=== PATIENT | female | born 1955 | race Caucasian/White ===

== ENCOUNTER 2018-05-16 12:05 | Inpatient (IN) ==
[2018-05-16] MEDS ORDERED: HYDROmorphone PF Inj 2 MG/ML Vial IV.PUSH ONE ×2 (12:34→13:50)
[2018-05-16] MEDS ORDERED: Sod Chloride 0.9% Inj 1,000 ML IV.SIG ONE (12:34)
--- NOTE | 2018-05-16 12:43 | ED ---
HPI General Chief complaint: Abdominal Pain Stated complaint: ABD PAIN Time Seen by Provider: 05/16/18 12:25 Source: patient and family Mode of arrival: ambulatory Limitations: no limitations History of Present Illness HPI narrative: 63-year-old female with history of rheumatoid arthritis, here for evaluation of severe abdominal pain. The patient was seen in the emergency department yesterday for the same. She had a CT abdomen pelvis that showed no acute intra-abdominal abnormality. Her pain was relieved only for a short time with morphine in the emergency department. The patient was given the option to be admitted for intractable abdominal pain. She elected to be discharged home with pain medication. She states that her pain never resolved, and has been progressively worsening throughout the day today. The worst pain is in her epigastrium, but she also has severe diffuse abdominal pain today. She notices that the pain today radiates to her left shoulder. She describes the pain as sharp/pressure-like, severe, constant, worse with even the slightest movements. She feels nauseous but has not vomited. She has been unable to eat or drink because of the pain. History of section and appendectomy. No other abdominal surgeries. No known cardiac disease. Related Data Home Medications Medication Instructions Recorded Confirmed amitriptyline 50 mg PO DAILY 05/15/18 05/16/18 folic acid 1 mg PO DAILY 05/15/18 05/16/18 hydroxychloroquine [Plaquenil] 200 mg PO DAILY 05/15/18 05/16/18 meloxicam 15 mg PO DAILY 05/15/18 05/16/18 prednisone 5 mg PO DAILY 05/15/18 05/16/18 methotrexate (PF) 10 mg SUBCUT QWEEK 05/16/18 05/16/18 tocilizumab [Actemra] 162 mg SUBCUT Q2W 05/16/18 05/16/18 Previous Rx's Medication Instructions Recorded hydrocodone-acetaminophen [[employer]] 1 tab PO Q6H PRN #12 tab 05/15/18 Allergies Allergy/AdvReac Type Severity Reaction Status Date / Time No Known Allergies Allergy Verified 05/16/18 12:28 Review of Systems ROS: all other systems reviewed are negative PMFSH Social History Social History Substance History: No History of Abuse Second Hand Smoke Exposure: No Smoking Status: Never smoker How Often Do You Have a Drink Containing Alcohol: 2 to 4 times a month Immunization History Tetanus Immunization: <5 Years Exam Narrative Exam Narrative: GENERAL: Well-developed, well-nourished, keeps eyes closed, lying still, moderate distress secondary to pain. SKIN: Focused skin assessment warm/dry. No rash. HEAD: Atraumatic. Normocephalic. EYES: Pupils equal and round. No scleral icterus. No injection or drainage. ENT: Mucous membranes pink and dry. NECK: Trachea midline. No JVD. CARDIOVASCULAR: Tachycardic, rate 115, regular. RESPIRATORY: No accessory muscle use. Clear to auscultation. Breath sounds equal bilaterally. GASTROINTESTINAL: Abdomen rigid, distended, diffusely tender with peritoneal signs, absent bowel sounds. MUSCULOSKELETAL: No obvious deformities. No clubbing. No cyanosis. No edema. NEUROLOGICAL: Awake and alert. No obvious cranial nerve deficits. Motor grossly within normal limits. Normal speech. PSYCHIATRIC: Appropriate mood and affect; insight and judgment normal. Course Initial Documented Vital Signs Temperature 98.8 F 05/16/18 12:10 Pulse Rate 120 H 05/16/18 12:10 Respiratory Rate 18 05/16/18 12:10 Blood Pressure 161/78 H 05/16/18 12:10 Pulse Oximetry 95 05/16/18 12:10 Last Documented Vital Signs Temperature 98.8 F 05/16/18 12:10 Pulse Rate 120 H 05/16/18 15:27 Respiratory Rate 16 05/16/18 15:27 Blood Pressure 152/72 H 05/16/18 15:27 Pulse Oximetry 95 05/16/18 15:27 Critical Care Time Critical Care Time: Yes Total Critical Care Time: 35 Attestation: Aggregate critical care time was 35 minutes. Time to perform other separately billable procedures was not included in the critical care time. My time did not include minutes spent treating any other patients simultaneously or on activities that did not directly contribute to the patient's treatment. The services I provided to this patient were to treat and/or prevent clinically significant deterioration that could result in: , permanent disability, septic shock, worsening clinical condition, multiorgan failure I provided critical care services requiring my management, as noted below: Chart data review, documentation time, medication orders and management, vital sign assessments/reviewing monitor data, ordering and reviewing lab tests, ordering and interpreting/reviewing x-rays and diagnostic studies, care of the patient and discussion of the patient with the admitting physicians. Medical Decision Making MDM Narrative Medical decision making narrative: Vital signs and labs reviewed. CT abdomen and pelvis: CONCLUSION:1. Interval development of free intraperitoneal air and loculated fluid in the lesser sac with slight fluid surrounding the spleen and within the cul-de-sac not present on the prior examination from one day ago.2. The exact etiology is not certain, however there is minimal questionable diminished attenuation of the head of the pancreas and possibility of acute pancreatitis should be entertained in addition to possibly perforated gastric ulcer. Patient was made aware of CT findings. She has been on meloxicam for years for rheumatoid arthritis. She was written for a dose of IV Zosyn. 2:00 PM: The patient was discussed with on-call general surgeon Dr. Harris. States the patient should be transferred to the main hospital OR waiting holding for operative repair of perforated viscus. He recommends giving the patient a dose of 400 mg of IV Diflucan as well as the dose of 4.5mg of IV Zosyn already provided to the patient. Medical Screen Exam Complete: Yes Emergency Medical Condition: Yes Differential Diagnosis Differential Diagnosis: Bowel perforation, peritonitis, pancreatitis, hepatobiliary disease, gastritis, peptic ulcer disease, ACS Lab Data Result diagrams: 05/16/18 12:35 05/16/18 12:35 Lab Results 05/16/18 05/16/18 05/16/18 Range/Units 12:35 12:35 12:35 CBC w Diff Auto diff final WBC 11.3 H D (4.0-11.0) th/mm3 RBC 4.29 (4.00-5.30) mil/mm3 Hgb 14.9 (11.6-15.3) gm/dL Hct 42.5 (35.0-46.0) % MCV 99.3 (80.0-100.0) fL MCH 34.8 H (27.0-34.0) pg MCHC 35.0 (32.0-36.0) % RDW 13.7 (11.6-17.2) % Plt Count 253 (150-450) th/mm3 MPV 7.6 (7.0-11.0) fL Neut % (Auto) 92.4 H (16.0-70.0) % Lymph % (Auto) 3.8 L (9.0-44.0) % [place] % (Auto) 2.6 (0.0-8.0) % Eos % (Auto) 1.1 (0.0-4.0) % Baso % (Auto) 0.1 (0.0-2.0) % Neut # (Auto) 10.5 H (1.8-7.7) th/mm3 Lymph # (Auto) 0.4 L (1.0-4.8) th/mm3 [place] # (Auto) 0.3 (0.0-0.9) th/mm3 Eos # (Auto) 0.1 (0.0-0.4) th/mm3 Baso # (Auto) 0.0 (0.0-0.2) th/mm3 WBC Differential . Differential Comment . PT 10.4 (9.8-11.6) sec INR 1.0 Ratio APTT 21.8 L (24.3-30.1) sec Sodium 139 (136-145) meq/L Potassium 3.9 (3.5-5.1) meq/L Chloride 105 (98-107) meq/L Carbon Dioxide 27.1 (21.0-32.0) meq/L Anion Gap 7 (5-15) meq/L BUN 16 (7-18) mg/dL Creatinine 0.97 (0.50-1.00) mg/dL Estimated GFR 58 L (>89) mL/min Random Glucose 104 (74-106) mg/dL Lactic Acid (0.4-2.0) mmol/L Calcium 8.1 L (8.5-10.1) mg/dL Magnesium 1.9 (1.5-2.5) mg/dL Total Bilirubin 0.8 (0.2-1.0) mg/dL AST 18 (15-37) U/L ALT 21 (10-53) U/L Alkaline Phosphatase 68 (45-117) U/L Total Creatine Kinase 66 (26-192) U/L Troponin I Less than 0.02 L (0.02-0.05) ng/mL Total Protein 6.5 (6.4-8.2) g/dL Albumin 3.9 (3.4-5.0) g/dL Lipase 118 (73-393) U/L Blood Type Blood Type Recheck Antibody Screen Antibody Identification Rout Panel Path Interp 05/16/18 05/16/18 05/16/18 Range/Units 12:35 12:35 15:17 CBC w Diff WBC (4.0-11.0) th/mm3 RBC (4.00-5.30) mil/mm3 Hgb (11.6-15.3) gm/dL Hct (35.0-46.0) % MCV (80.0-100.0) fL MCH (27.0-34.0) pg MCHC (32.0-36.0) % RDW (11.6-17.2) % Plt Count (150-450) th/mm3 MPV (7.0-11.0) fL Neut % (Auto) (16.0-70.0) % Lymph % (Auto) (9.0-44.0) % [place] % (Auto) (0.0-8.0) % Eos % (Auto) (0.0-4.0) % Baso % (Auto) (0.0-2.0) % Neut # (Auto) (1.8-7.7) th/mm3 Lymph # (Auto) (1.0-4.8) th/mm3 [place] # (Auto) (0.0-0.9) th/mm3 Eos # (Auto) (0.0-0.4) th/mm3 Baso # (Auto) (0.0-0.2) th/mm3 WBC Differential Differential Comment PT (9.8-11.6) sec INR Ratio APTT (24.3-30.1) sec Sodium (136-145) meq/L Potassium (3.5-5.1) meq/L Chloride (98-107) meq/L Carbon Dioxide (21.0-32.0) meq/L Anion Gap (5-15) meq/L BUN (7-18) mg/dL Creatinine (0.50-1.00) mg/dL Estimated GFR (>89) mL/min Random Glucose (74-106) mg/dL Lactic Acid 1.8 (0.4-2.0) mmol/L Calcium (8.5-10.1) mg/dL Magnesium (1.5-2.5) mg/dL Total Bilirubin (0.2-1.0) mg/dL AST (15-37) U/L ALT (10-53) U/L Alkaline Phosphatase (45-117) U/L Total Creatine Kinase (26-192) U/L Troponin I (0.02-0.05) ng/mL Total Protein (6.4-8.2) g/dL Albumin (3.4-5.0) g/dL Lipase (73-393) U/L Blood Type O Positive Blood Type Recheck Required Antibody Screen Negative Antibody Identification Cancelled Rout Panel Path Interp Cancelled Imaging Data Radiologist's impression: Abdomen/Pelvis CT 05/16/18 12:34 CONCLUSION: 1. Interval development of free intraperitoneal air and loculated fluid in the lesser sac with slight fluid surrounding the spleen and within the cul-de-sac not present on the prior examination from one day ago. 2. The exact etiology is not certain, however there is minimal questionable diminished attenuation of the head of the pancreas and possibility of acute pancreatitis should be entertained in addition to possibly perforated gastric ulcer. ECG Data Attestation: I personally reviewed and interpreted this ECG as follows: (Sinus tachycardia, rate 115, normal axis, normal intervals, nonspecific t wave abnormality. ) Discharge Plan Discharge Disposition Patient Disposition: 30 Still Patient Discharge Condition Condition: Serious Discharge Details Diagnosis: Perforated viscus Physicians Team ED Provider: Min Manuel Primary Care Provider: UNKNOWN, Attending Provider: Mejia Harris Discharge Interventions Interventions: ED Discharge Assessment Last Done: 05/16/18 15:24 Vital Signs Last Done: 05/16/18 15:27 Status ED Status: Left Department
[2018-05-16 13:12] LABS: Baso % (Auto) 0.1 % (0.0-2.0); Eos # (Auto) 0.1 th/mm3 (0.0-0.4); Eos % (Auto) 1.1 % (0.0-4.0); Hematocrit 42.5 % (35.0-46.0); Hemoglobin 14.9 gm/dL (11.6-15.3); Lymph # (Auto) 0.4 th/mm3 (1.0-4.8); Lymph % (Auto) 3.8 % (9.0-44.0); Mean Corpuscular Hemoglobin 34.8 pg (27.0-34.0); Mean Corpuscular Volume 99.3 fL (80.0-100.0); Mean Platelet Volume 7.6 fL (7.0-11.0); Mono # (Auto) 0.3 th/mm3 (0.0-0.9); Mono % (Auto) 2.6 % (0.0-8.0); Neut # (Auto) 10.5 th/mm3 (1.8-7.7); Neut % (Auto) 92.4 % (16.0-70.0); Platelet Count 253 th/mm3 (150-450); Red Blood Count 4.29 mil/mm3 (4.00-5.30); Red Cell Distribution Width 13.7 % (11.6-17.2); White Blood Count 11.3 th/mm3 (4.0-11.0)
[2018-05-16 13:21] LABS: Chloride 105 meq/L (98-107); Potassium 3.9 meq/L (3.5-5.1); Sodium 139 meq/L (136-145)
[2018-05-16 13:26] LABS: Activated Partial Thrombo Time 21.8 sec (24.3-30.1); Albumin 3.9 g/dL (3.4-5.0); Anion Gap 7 meq/L (5-15); Calcium 8.1 mg/dL (8.5-10.1); Carbon Dioxide 27.1 meq/L (21.0-32.0); Lipase 118 U/L (73-393); Prothrombin Time 10.4 sec (9.8-11.6)
[2018-05-16 13:27] LABS: Blood Urea Nitrogen 16 mg/dL (7-18); Glucose,Random 104 mg/dL (74-106); Magnesium 1.9 mg/dL (1.5-2.5)
[2018-05-16 13:29] LABS: Alanine Aminotransferase 21 U/L (10-53); Aspartate Aminotransferase 18 U/L (15-37); Glomerular Filtration Rate 58 mL/min (>89)
[2018-05-16 13:31] LABS: Total Protein 6.5 g/dL (6.4-8.2)
[2018-05-16 13:32] LABS: Alkaline Phosphatase 68 U/L (45-117)
[2018-05-16 13:35] LABS: Creatine Kinase 66 U/L (26-192)
--- NOTE | 2018-05-16 13:44 | CT ---
EXAM DATE: 05/16/2018 12:43 PM EDT AGE/SEX: 63 years / Female INDICATIONS: Diffuse abdominal pain. Evaluate for perforation. CLINICAL DATA: This is the patient's initial encounter. Patient reports that signs and symptoms have been present for 1 day and indicates a pain score of 8/10. MEDICAL/SURGICAL HISTORY: . Pulmonary embolism. Appendectomy. Tubal ligation. ORAL CONTRAST: No oral contrast ingested. RADIATION DOSE: 10.31 CTDI (mGy) COMPARISON: [facility], CT ABDOMEN & PELVIS W CONTRAST, 05/15/2018. . TECHNIQUE: Multiple contiguous axial images were obtained through the abdomen and pelvis following b olus infusion of 95 ml Omnipaque 350 (iohexol) nonionic water-soluble contrast as a single exam dos e. No oral contrast ingested. Using automated exposure control and adjustment of the mA and/or kV ac cording to patient size, radiation dose was kept as low as reasonably achievable to obtain optimal di agnostic quality images. DICOM format image data is available electronically for review and comparis on. FINDINGS: Abdomen CT: The liver, spleen, kidneys, adrenals are unremarkable. There is no evidence for any appreciable patho logical adenopathy or bowel obstruction. There is fluid collection within the lesser sac measures al most 6 cm in size loculated and the exact etiology or source is not certain. There is also minimal fl uid surrounding the spleen. The pancreas appears grossly intact, however there may be slight diminish ed attenuation involving the head of the pancreas and possibility of acute pancreatitis should be ent ertained in the appropriate clinical setting. There is slight scarring and/or atelectasis in both khris g bases posteriorly. There is a small almost 1 cm lymph node in the right cardiophrenic angle most li hussain benign. There are a few gas bubbles intraperitoneal one is adjacent to the head of the pancreas and the other one adjacent to the stomach anteriorly, one area adjacent to the stomach and anterior portion of the spleen and benign of these were present on the prior study from one day ago there is slight thickeni ng of the wall of the stomach nonspecific and the possibility of perforated gastric ulcer is not excl uded . Pelvic CT: There is no evidence for mass, abscess formation, or any significant adenopathy within the pelvis. 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 There is moderate amount of stool in the colon. There is slight fluid in the cul-de-sac. CONCLUSION: 1. Interval development of free intraperitoneal air and loculated fluid in the lesser sac with sligh t fluid surrounding the spleen and within the cul-de-sac not present on the prior examination from on e day ago. 2. The exact etiology is not certain, however there is minimal questionable diminished attenuation o f the head of the pancreas and possibility of acute pancreatitis should be entertained in addition to possibly perforated gastric ulcer. Electronically signed by: Ector Turcios MD 05/16/2018 1:43 PM EDT
[2018-05-16] MEDS ORDERED: Piperacil/Tazo 4.5 GM Premix 4.5 GM/100 ML BAG IV.SIG ONE (13:50)
--- NOTE | 2018-05-16 14:33 | ECG ---
Date Performed: 05/16/2018 Time Performed: 14:00:11 PTAGE: 63 years EKG: SINUS TACHYCARDIA NONSPECIFIC ST & T-WAVE ABNORMALITY ABNORMAL RHYTHM ECG Compared to prior electrocardiogram, Rate has increased and nonspecific ST T-wave changes are present PREVIOUS TRACING : 05/15/2018 20.16 DOCTOR: Cresencio Melgoza Interpretating Date/Time 05/16/2018 14:31:43
[2018-05-16] MEDS ORDERED: Pantoprazole Inj 40 MG Vial IV.PUSH ONE (15:07)
[2018-05-16] MEDS ORDERED: Chlorhexidine Gluconate 2% 1 Pack (2 Cloths) TOPICAL ONE (16:28)
[2018-05-16] MEDS ORDERED: Metoprolol Tartrate 25 MG Tablet PO ONE (16:28)
--- NOTE | 2018-05-16 16:32 | P.CONGS ---
[facility] Surgery Consult Note Reason for consult: abdominal pain Narrative: Consult NOTE FOR SURGICAL ATTENDING, DR. GE SARGENT Patient on prednisone for treatment of her severe arthritis when she developed acute onset of abdominal pain in the midepigastric area yesterday. Patient came to the emergency room yesterday was evaluated had a CT scan which did not show any pathology she was told to return if she had any problem or problems but it got more severe and her abdomen became rigid she came back into the emergency room and a repeat ct scan showed free air consistent with a perforated viscus most likely from a duodenal or gastric ulcer. Surgery was consulted for evaluation and treatment. Patient is never had any problems with ulcer disease gastritis or esophagitis she had a colonoscopy in the past 2 years. [facility] - History History Provided By: Patient, Family Member - Medical History Medical History: Medical History (Last Reviewed 05/16/18 @ 16:30 by Ge Sargent MD) Pulmonary embolism Rheumatoid arthritis - Surgical History Surgical History: Surgical History (Last Reviewed 05/16/18 @ 16:30 by Ge Sargent MD) H/O tubal ligation S/P appy - Social History I have reviewed the patient's Social History: Yes - Tobacco History Second Hand Smoke Exposure: No Smoking Status: Never smoker - Alcohol History How Often Do You Have a Drink Containing Alcohol: 2 to 4 times a month - Substance Use History Substance History: No History of Abuse - Travel History Recent Travel in the [place] Within the Last 8 Weeks: No Recent Travel Out of the Country Within the Last 8 Weeks: No - Immunization History Tetanus Immunization: <5 Years Medications and Allergies Active Medications: Active Medications Sodium Chloride (Ns Inj) 1,000 mls @ 125 mls/hr IV.CONT .Q8H TOSHIA Sodium Chloride (Ns Flush) 2 ml IV.FLUSH PRN PRN PRN Reason: FLUSH AFTER USING IV ACCESS Allergies Allergy/AdvReac Type Severity Reaction Status Date / Time No Known Allergies Allergy Verified 05/16/18 12:28 Home Medications Medication Instructions Recorded Confirmed Type amitriptyline 50 mg PO DAILY 05/15/18 05/16/18 History folic acid 1 mg PO DAILY 05/15/18 05/16/18 History hydroxychloroquine [Plaquenil] 200 mg PO DAILY 05/15/18 05/16/18 History meloxicam 15 mg PO DAILY 05/15/18 05/16/18 History prednisone 5 mg PO DAILY 05/15/18 05/16/18 History methotrexate (PF) 10 mg SUBCUT QWEEK 05/16/18 05/16/18 History tocilizumab [Actemra] 162 mg SUBCUT Q2W 05/16/18 05/16/18 History Exam Vital signs: Vital Signs 05/16/18 12:10 05/16/18 12:23 05/16/18 13:55 Temperature 98.8 F Pulse Rate 120 H 115 H 114 H Respiratory Rate 18 16 18 Blood Pressure 161/78 H 156/76 H 147/70 H Pulse Oximetry 95 95 96 05/16/18 15:27 Temperature Pulse Rate 120 H Respiratory Rate 16 Blood Pressure 152/72 H Pulse Oximetry 95 Intake & Output 05/15/18 05/16/18 05/16/18 18:59 06:59 18:59 Intake Total 1300 / 1300 Balance 1300 / 1300 Weight 72.575 kg Intake: IV 1300 / 1300 Diflucan 400 mg Premix Bag 200 200 / 200 ML @ 100 mls/hr IV.SIG ONCE ONE Rx#:[id number] Zosyn 4.5 GM Premix 4.5 gm In 100 / 100 100 ml @ 200 mls/hr IV.SIG ONCE ONE Rx#:[id number] NS Inj 1,000 ML @ Wide Open IV. 1000 / 1000 SIG BOLUS ONE Rx#:[id number] Other: Weight On Admission 72.575 kg Narrative: Patient alert oriented Mild distress holding her abdomen Neck is supple without lymphadenopathy no JVD Chest is fairly clear although with deep inspiration and causes pain in the abdomen Heart regular rate slightly tachycardic Abdomen rigid abdomen difficult to examine because the amount of pain she has throughout most pain is in the midepigastric region surgical scar from an open appendectomy Neurologic alert and oriented Moves all extremities well although it causes discomfort in her abdomen Results - Labs 05/16/18 12:35 05/16/18 12:35 Laboratory Results - last 24 hr 05/16/18 05/16/18 05/16/18 12:35 12:35 12:35 CBC w Diff Auto diff final WBC 11.3 H D RBC 4.29 Hgb 14.9 Hct 42.5 MCV 99.3 MCH 34.8 H MCHC 35.0 RDW 13.7 Plt Count 253 MPV 7.6 Neut % (Auto) 92.4 H Lymph % (Auto) 3.8 L [place] % (Auto) 2.6 Eos % (Auto) 1.1 Baso % (Auto) 0.1 Neut # (Auto) 10.5 H Lymph # (Auto) 0.4 L [place] # (Auto) 0.3 Eos # (Auto) 0.1 Baso # (Auto) 0.0 WBC Differential . Differential Comment . PT 10.4 INR 1.0 APTT 21.8 L Sodium 139 Potassium 3.9 Chloride 105 Carbon Dioxide 27.1 Anion Gap 7 BUN 16 Creatinine 0.97 Estimated GFR 58 L Random Glucose 104 Lactic Acid Calcium 8.1 L Magnesium 1.9 Total Bilirubin 0.8 AST 18 ALT 21 Alkaline Phosphatase 68 Total Creatine Kinase 66 Troponin I Less than 0.02 L Total Protein 6.5 Albumin 3.9 Lipase 118 Blood Type Blood Type Recheck Antibody Screen 05/16/18 05/16/18 12:35 12:35 CBC w Diff WBC RBC Hgb Hct MCV MCH MCHC RDW Plt Count MPV Neut % (Auto) Lymph % (Auto) [place] % (Auto) Eos % (Auto) Baso % (Auto) Neut # (Auto) Lymph # (Auto) [place] # (Auto) Eos # (Auto) Baso # (Auto) WBC Differential Differential Comment PT INR APTT Sodium Potassium Chloride Carbon Dioxide Anion Gap BUN Creatinine Estimated GFR Random Glucose Lactic Acid 1.8 Calcium Magnesium Total Bilirubin AST ALT Alkaline Phosphatase Total Creatine Kinase Troponin I Total Protein Albumin Lipase Blood Type O Positive Blood Type Recheck Required Antibody Screen Positive H - Imaging Imaging: ITS Impressions Abdomen/Pelvis CT 05/16/18 12:34 CONCLUSION: 1. Interval development of free intraperitoneal air and loculated fluid in the lesser sac with slight fluid surrounding the spleen and within the cul-de-sac not present on the prior examination from one day ago. 2. The exact etiology is not certain, however there is minimal questionable diminished attenuation of the head of the pancreas and possibility of acute pancreatitis should be entertained in addition to possibly perforated gastric ulcer. CT scan - abdomen: report reviewed, image reviewed CT scan - pelvis: report reviewed, image reviewed Assessment and Plan - Assessment (1) Free intraperitoneal air Code(s): K66.8 - Other specified disorders of peritoneum Status: Acute (2) Perforated viscus Code(s): R19.8 - Other specified symptoms and signs involving the digestive system and abdomen Status: Acute (3) Rheumatoid arteritis Code(s): I00 - Rheumatic fever without heart involvement Status: Acute (4) alf systemic steroid user Code(s): Z79.52 - alf (current) use of systemic steroids Status: Acute (5) History of pulmonary embolus (PE) Code(s): Z86.711 - Personal history of pulmonary embolism Status: Acute - Plan 63-year-old female with rheumatoid arthritis long-term steroid use with free air on CT scan most consistent with perforated ulcer. Discussed with the patient in detail about diagnostic laparoscopy possible open with repair of the perforated viscus if indicated. She understood good ORs addressing the timing of the surgery She is already received antibiotics - Attending Attestation CONSULTATION NOTE FOR SURGICAL ATTENDING, DR. GE SARGENT I agree with above assessment and plan. The exam, history, and the medical decision-making described in the above note were completed with the assistance of the mid-level provider. I reviewed and agree with the findings presented. I attest that I had a [id number] encounter with the patient on the same day, and personally performed and documented my assessment and findings in the medical record. The following services were provided during this hospital visit: Chart data review, vital sign assessments/reviewing monitor data Review of consultations notes if present. Medication orders/review and/or management Ordering and/or reviewing lab tests Ordering and/or interpreting/reviewing x-rays and/or diagnostic studies Care of the patient and discussion of the patient with the care team Documentation time To help prompt me to consider important information that might be impacting today's encounter and assessment, Information from prior notes written by myself or my colleagues may have been "brought forward/copy and pasted" into today's note.
[2018-05-16] MEDS ORDERED: Phenylephrine/NS 1000 MCG/10ML Syringe IV.PUSH ONE (16:43)
[2018-05-16] MEDS ORDERED: Neostigmine Inj 5 MG/5 ML Syringe IV.PUSH ONE (16:43)
[2018-05-16] MEDS ORDERED: Lidocaine PF 1% Inj 5 ML Syringe OTHER ONE (16:43)
[2018-05-16] MEDS ORDERED: Glycopyrrolate Inj 1 MG/5 ML Syringe IV.PUSH ONE (16:43)
[2018-05-16] MEDS ORDERED: Succinylcholine Inj 100 MG/5 ML Syringe IV.PUSH ONE (16:43)
[2018-05-16] MEDS ORDERED: Sodium Chlor 0.9% Inj 500 ML IV.SIG SCH (17:00)
[2018-05-16] MEDS ORDERED: Bisacodyl 10 MG Supp RECTAL PRN (18:14)
[2018-05-16] MEDS ORDERED: Naloxone Inj 0.4 MG/ML Vial IV.PUSH PRN ×3 (18:14→18:25)
[2018-05-16] MEDS ORDERED: Benzocaine 20% Oral Spray 60 ML Can OROPHARYNG PRN (18:14)
[2018-05-16] MEDS ORDERED: Post-op Orders (for Pharmacy) OTHER ONE (18:14)
[2018-05-16] MEDS ORDERED: HYDROmorphone PF Inj 2 MG/ML Vial ONE (18:16)
[2018-05-16] MEDS: HYDROmorphone PCA Inj 6 MG/30 ML PCA.VIAL PCA PRN (19:02)
[2018-05-16] MEDS: Sod Chloride 0.9% Inj 1,000 ML IV.CONT SCH (19:03)
--- NOTE | 2018-05-16 20:03 | P.CONCC ---
History of Present Illness Primary Care Provider: UNKNOWN History of Present Illness: 63-year-old female with history of rheumatoid arthritis, presents for an evaluation of severe abdominal pain. The patient was seen in the emergency department yesterday for the same. She had a CT abdomen pelvis that showed no acute intra-abdominal abnormality. Her pain was relieved only for a short time with morphine in the emergency department. The patient was given the option to be admitted for intractable abdominal pain. She elected to be discharged home with pain medication. However her pain never resolved, and has been progressively worsening throughout the day today. The worst pain was in her epigastrium, but she also has severe diffuse abdominal pain today. She notices that the pain radiates to her left shoulder. She describes the pain as sharp/ pressure-like, severe, constant, worse with even the slightest movements. She feels nauseous but has not vomited. She has been unable to eat or drink because of the pain. History of section and appendectomy. No other abdominal surgeries. No known cardiac disease.the CT of the abdomen and pelvis obtained in the emergency department shows interval development of free intraperitoneal air and loculated fluid in the lesser sac with slight fluid surrounding the spleen and within the cul-de-sac not present on the prior examination from one day ago. The patient was emergently taken to operating room by Dr. Sargent where she was discovered to have . Perforated posterior wall of the body of the stomach with irritation of the pancreas. PROCEDURE: 1. Diagnostic laparoscopy to evaluate the site of perforation, which appeared to be posteriorly. 2. Exploratory laparotomy with lysis of adhesions in the right lower quadrant from previous appendectomy. 2. Entrance into the lesser sac with evacuation of bilious fluid and identification of a perforation of the posterior wall of the stomach overlying the pancreas. 3. Tuan patch of the posterior wall of the stomach with closure of the perforated duodenal ulcer of 5 mm. 4. Placement of drain in the pancreas, on top of the pancreas for drainage of irritation of the pancreas, secondary to the perforated gastric ulcer. Review of Systems All other systems reviewed negative except as stated in HPI PMFSH - History History Provided By: Patient, Family Member - Medical History Medical History: Medical History (Last Reviewed 05/16/18 @ 16:30 by Ilan Sargent MD) Pulmonary embolism Rheumatoid arthritis - Surgical History Surgical History: Surgical History (Last Reviewed 05/16/18 @ 16:30 by Ilan Sargent MD) H/O tubal ligation S/P appy - Tobacco History Second Hand Smoke Exposure: No Smoking Status: Never smoker - Alcohol History How Often Do You Have a Drink Containing Alcohol: 2 to 4 times a month - Substance Use History Substance History: No History of Abuse - Travel History Recent Travel in the [place] Within the Last 8 Weeks: No Recent Travel Out of the Country Within the Last 8 Weeks: No - Immunization History Tetanus Immunization: <5 Years Medications and Allergies Active Medications: Active Medications Current Medications Benzocaine (Hurricaine 20% Oral [place]) 1 spray OROPHARYNG ONCE PRN PRN Reason: SEE LABEL COMMENTS Last Admin: 05/16/18 22:34 Dose: 1 spray Bisacodyl (Dulcolax Supp) 10 mg RECTAL DAILY PRN PRN Reason: SEVERE CONSITIPATION Hydrocortisone Sodium Succinate (Solucortef Inj) 50 mg IV.PUSH Q12HR [place] Last Admin: 05/16/18 21:11 Dose: 50 mg Sodium Chloride (Ns Inj) 1,000 mls @ 125 mls/hr IV.CONT .Q8H [place]OSHIA Last Admin: 05/16/18 19:03 Dose: 125 mls/hr Lactated Ringer's (Lr 1000 Ml Inj) 1,000 mls @ 30 mls/hr IV.SIG .Q24H [place] Stop: 05/17/18 16:29 Last Admin: 05/16/18 16:15 Dose: 30 mls/hr Sodium Chloride (Ns Inj) 500 mls @ 30 mls/hr IV.SIG .Q10H [place] Last Admin: 05/16/18 19:09 Dose: Not Given Acetaminophen (Ofirmev Inj) 1,000 mg in 100 mls @ 400 mls/hr IV.SIG Q6H [place] Stop: 05/17/18 11:14 Last Admin: 05/16/18 22:44 Dose: 400 mls/hr Hydromorphone/Sodium Chloride (Dilaudid [employer] Inj) 6 mg in 30 mls @ 0 mls/hr PRESS OFFBEARER UNSCH PRN PRN Reason: per PRESS OFFBEARER parameters Last Admin: 05/16/18 19:02 Dose: 0 mls/hr Fluconazole (Diflucan 200 Mg Premix Bag) 100 mls @ 100 mls/hr IV.SIG Q24H [place] Piperacillin/Tazobactam/Dextrose (Zosyn 4.5 Gm Premix) 4.5 gm in 100 mls @ 200 mls/hr IV.SIG Q6H [facility] Last Admin: 05/16/18 21:10 Dose: 200 mls/hr Miscellaneous Information ([facility] [place] [facility]) 1 each OTHER UNSCH PRN PRN Reason: SEE LABEL COMMENTS Stop: 05/17/18 18:19 Naloxone HCl (Narcan Inj) 0.4 mg IV.PUSH PRN PRN PRN Reason: SEE LABEL COMMENTS Ondansetron HCl (Zofran Odt) 4 mg PO Q6H PRN PRN Reason: NAUSEA OR VOMITING Ondansetron HCl (Zofran Inj) 4 mg IV.PUSH Q6H PRN PRN Reason: NAUSEA OR VOMITING Pantoprazole Sodium (Protonix Inj) 40 mg IV.PUSH Q12H [facility] Last Admin: 05/16/18 21:13 Dose: 40 mg Senna/Docusate Sodium (Samra-Colace) 1 tab PO BID [facility] Last Admin: 05/16/18 21:11 Dose: 1 tab Sodium Chloride (Ns Flush) 2 ml IV.FLUSH PRN PRN PRN Reason: FLUSH AFTER USING IV ACCESS Allergies Allergy/AdvReac Type Severity Reaction Status Date / Time No Known Allergies Allergy Verified 05/16/18 12:28 Home Medications Medication Instructions Recorded Confirmed Type amitriptyline 50 mg PO DAILY 05/15/18 05/16/18 History folic acid 1 mg PO DAILY 05/15/18 05/16/18 History hydroxychloroquine [Plaquenil] 400 mg PO DAILY 05/15/18 05/16/18 History meloxicam 15 mg PO DAILY 05/15/18 05/16/18 History prednisone 5 mg PO DAILY 05/15/18 05/16/18 History Aller-Pepito 10 mg PO DAILY 05/16/18 05/16/18 History Calcium 600 + D(3) 05/16/18 05/16/18 History Calcium 600 + D(3) PO DAILY 05/16/18 History Multi Vitamin DAILY 05/16/18 History Relpax 20 mg PO PRN 05/16/18 History Rheumate BID 05/16/18 History methotrexate (PF) 10 mg SUBCUT QWEEK 05/16/18 05/16/18 History sumatriptan PRN 05/16/18 History tocilizumab [Actemra] 162 mg SUBCUT Q2W 05/16/18 05/16/18 History vit D3-vit L-hvyrgnwyc-tmie 2,000 PO DAILY 05/16/18 History Physical Exam Vital signs: Vital Signs 05/16/18 12:10 05/16/18 12:23 05/16/18 13:55 Temperature 98.8 F Pulse Rate 120 H 115 H 114 H Respiratory Rate 18 16 18 Blood Pressure 161/78 H 156/76 H 147/70 H Pulse Oximetry 95 95 96 05/16/18 15:27 05/16/18 18:19 05/16/18 18:30 Temperature 97.7 F Pulse Rate 120 H 105 H 99 H Respiratory Rate 16 12 22 Blood Pressure 152/72 H 74/38 L 95/51 L Pulse Oximetry 95 91 L 96 05/16/18 18:45 05/16/18 19:00 05/16/18 19:15 Temperature Pulse Rate 98 H 92 H 94 H Respiratory Rate 24 18 18 Blood Pressure 99/57 L 97/56 L 102/57 L Pulse Oximetry 96 97 98 05/16/18 19:30 Temperature Pulse Rate 93 H Respiratory Rate 15 Blood Pressure 105/58 L Pulse Oximetry 96 Intake & Output 05/16/18 05/16/18 05/17/18 06:59 18:59 06:59 Intake Total 4000 / 4000 Output Total 250 / 250 Balance 3750 / 3750 Weight 72.575 kg Intake: IV 1300 / 1300 Diflucan 400 mg Premix Bag 200 200 / 200 ML @ 100 mls/hr IV.SIG ONCE ONE Rx#:[id number] Zosyn 4.5 GM Premix 4.5 gm In 100 / 100 100 ml @ 200 mls/hr IV.SIG ONCE ONE Rx#:[id number] NS Inj 1,000 ML @ Wide Open IV. 1000 / 1000 SIG BOLUS ONE Rx#:[id number] Anesthesia Amount 2700 / 2700 Output: Estimated Blood Loss 50 / 50 Urine Amount (Catheter) 200 / 200 Indwelling Urethral Catheter 200 / 200 Other: Weight On Admission 72.575 kg - Constitutional mild distress, moderate distress - Routine HEENT Exam Head: Present: normocephalic, atraumatic Eye: Present: EOMI, PERRL, normal accommodation ENT: Present: mucous membranes dry - Routine Neck Exam Present: supple, full ROM. Absent: JVD, carotid bruit - Routine Respiratory Exam Absent: accessory muscle use, rhonchi, stridor, wheezes - Routine Cardiovascular Exam Present: RRR, S1, S2 - Routine Abdominal Exam Present: soft, tenderness. Absent: distended - Routine Extremities Exam Present: full ROM. Absent: cyanosis, clubbing, edema - Routine Skin Exam Present: intact. Absent: cyanosis, erythema - Routine Neurological Exam Present: alert, oriented X3, moving all extremities - Detailed Neurological Exam: Coma Scale Eye Opening: Spontaneous Verbal Response: Oriented Motor Response: Obey commands [place] Coma Scale Total: 15 - Routine Psychiatric Exam Present: normal affect - Urinary Catheter Management Indwelling Urethral Catheter Cath placed during this visit: yes Reason for continuing: Hourly intake/output Insertion date: 05/16/18 Insertion time: 16:54 Septic Shock Reassessment Septic shock perfusion: reassessment completed Assessment and Plan - Assessment and Plan Plan: Perforated viscus Posterior wall gastric ulcer -Status post exploratory laparotomy and Tuan patch by Dr. Sargent - Placement of drain in the pancreas -Protonix IV twice daily -Zosyn and Diflucan empirically -IV fluid hydration -N.p.o. -Management per general surgery Rheumatoid arthritis -Chronic use of steroids -IV cortisol to avoid adrenal insufficiency -Resume low-dose prednisone when okay by surgery to p.o. Hypocalcemia -IV replacement DVT GI prophylaxis -Teds SCDs -Pharmacological DVT prophylaxis per general surgery -Protonix IV twice daily 35 minutes of critical care
[2018-05-16] MEDS: Piperacil/Tazo 4.5 GM Premix 4.5 GM/100 ML BAG IV.SIG SCH (21:10)
[2018-05-16] MEDS: Hydrocortisone Sod Succinate 100 MG Vial IV.PUSH SCH (21:11)
[2018-05-16] MEDS: Senna/Docusate Sodium 8.6/50 MG Tablet PO SCH (21:11)
[2018-05-16] MEDS: Pantoprazole Inj 40 MG Vial IV.PUSH SCH (21:13)
--- NOTE | 2018-05-16 21:25 | MP ---
cc: Ilan Sagrent MD DATE OF OPERATION: 05/16/2018 DATE OF PROCEDURE: 05/16/2018. PREOPERATIVE DIAGNOSIS: Free air seen on CT scan with acute abdomen. POSTOPERATIVE DIAGNOSIS: 1. Perforated posterior wall of the body of the stomach with irritation of the pancreas. 2. Adhesions from previous surgery. PROCEDURE: 1. Diagnostic laparoscopy to evaluate the site of perforation, which appeared to be posteriorly. 2. Exploratory laparotomy with lysis of adhesions in the right lower quadrant from previous appendectomy. 2. Entrance into the lesser sac with evacuation of bilious fluid and identification of a perforation of the posterior wall of the stomach overlying the pancreas. 3. closure of gastric ulcer and Tuan patch of the posterior wall of the stomach with closure of the perforated gastric ulcer of 5 mm. 4. Placement of drain in the pancreas, on top of the pancreas for drainage of irritation of the pancreas, secondary to the perforated gastric ulcer. SURGEON: Ilan Sargent MD INDICATIONS FOR PROCEDURE: This is a pleasant lady, who is on steroids for rheumatoid arthritis. She came in the emergency room yesterday complaining of acute onset of abdominal pain. Workup was essentially negative, according to the ER records. She returned when her abdomen became rigid. It was found that she had some free air. Surgery was consulted. PROCEDURE: The patient was taken to the operating room and placed in supine position. After endotracheal anesthesia, her abdomen was prepped with Betadine. She had gotten preoperative antibiotics. We made an incision just below the umbilicus. Veress needle was inserted. The same medicines were performed. A saline bolus test was performed. The abdomen was insufflated to 15 mmHg. Trocar was introduced. Two other working ports were placed, one above the umbilicus, one below the umbilicus. We again visualized. There was some cloudy green fluid up around the greater curve along the spleen. This is evacuated. I checked the anterior surface of the stomach, there is no abnormality; the duodenum, no abnormality. The gallbladder appears normal, slightly indurated from being n.p.o. and sick, no stones. The liver appears normal. She has some adhesions down in the right lower quadrant from previous appendectomy. I am unable to visualize where this perforation is; I suspect it is posteriorly. For this reason, I converted it to open by making a midline incision below the xiphoid, down around the left side of the umbilicus. The abdomen was entered. We then were able to get in to gain access to the lesser sac by the omentum off the transverse colon. It is full of stool. We did run the small bowel from the ligament of Treitz down to the ileocecal valve and all this appears normal. The adhesion down the right lower quadrant was taken down with Harmonic scalpel. After this was done, we then entered the sac by taking the omentum off the transverse colon and a fair amount of induration is noted. We see a 5 mm defect in the posterior wall of the stomach typical of a perforated ulcer. This is oversewn with three 3-0 silk pop-offs with a Tuan patch formed by the omentum that had been taken off the transverse colon. Because of the amount of the inflammatory response in the lesser sac and the reaction of the pancreas, the pancreas was drained along with the posterior wall of the stomach in the lesser sac with a 10 fluted Cleve drain and brought out through the left lower quadrant and secured to the skin with a 3-0 Vicryl. We then irrigated copiously until it was all clear. We then closed the fascia in the midline after draping the omentum over the small bowel. The fascia was closed with a #1 PDS in a running fashion. We closed the skin with a #1 PDS looped. The skin and subcutaneous tissue was then cleaned, and then the skin was reapproximated the skin stapler device and sterile bandage was applied. Abdominal binder was applied. ESTIMATED BLOOD LOSS: 50 mL. FLUIDS: She received about 2 liters of crystalloid in the operating room. In the postoperative period., I talked to Dr. Mann, Critical Care, as I think this patient needs to be in the ICU for close monitoring because of her multiple medical issues. MD MARIFER Curtis/neisha , 06:35 PM , 06:46 PM JEFFERY
[2018-05-16] MEDS ORDERED: fentaNYL Citrate Inj 100 MCG/2 ML Ampul ONE (22:57)
[2018-05-17] MEDS: Sod Chloride 0.9% Inj 1,000 ML IV.CONT SCH ×5 (03:23→23:02)
[2018-05-17] MEDS: Piperacil/Tazo 4.5 GM Premix 4.5 GM/100 ML BAG IV.SIG SCH ×4 (03:30→19:42)
[2018-05-17 07:13] LABS: Baso % (Auto) 0.1 % (0.0-2.0); Hematocrit 33.3 % (35.0-46.0); Hemoglobin 11.5 gm/dL (11.6-15.3); Lymph # (Auto) 0.2 th/mm3 (1.0-4.8); Lymph % (Auto) 1.2 % (9.0-44.0); Mean Corpuscular HGB Conc 34.6 % (32.0-36.0); Mean Platelet Volume 7.3 fL (7.0-11.0); Mono # (Auto) 0.4 th/mm3 (0.0-0.9); Neut # (Auto) 17.5 th/mm3 (1.8-7.7); Neut % (Auto) 96.7 % (16.0-70.0); Platelet Count 187 th/mm3 (150-450); Red Cell Distribution Width 13.9 % (11.6-17.2); White Blood Count 18.1 th/mm3 (4.0-11.0)
[2018-05-17 07:42] LABS: Calcium 7.1 mg/dL (8.5-10.1); Carbon Dioxide 24.9 meq/L (21.0-32.0); Potassium 4.1 meq/L (3.5-5.1)
[2018-05-17 08:00] LABS: Total Protein 4.9 g/dL (6.4-8.2)
--- NOTE | 2018-05-17 10:23 | P.PNCC ---
Subjective Subjective Remarks/Hospital Course: 63-year-old female with history of rheumatoid arthritis, presents for an evaluation of severe abdominal pain. The patient was seen in the emergency department yesterday for the same. She had a CT abdomen pelvis that showed no acute intra-abdominal abnormality. Her pain was relieved only for a short time with morphine in the emergency department. The patient was given the option to be admitted for intractable abdominal pain. She elected to be discharged home with pain medication. However her pain never resolved, and has been progressively worsening throughout the day today. The worst pain was in her epigastrium, but she also has severe diffuse abdominal pain today. She notices that the pain radiates to her left shoulder. She describes the pain as sharp/ pressure-like, severe, constant, worse with even the slightest movements. She feels nauseous but has not vomited. She has been unable to eat or drink because of the pain. History of section and appendectomy. No other abdominal surgeries. No known cardiac disease.the CT of the abdomen and pelvis obtained in the emergency department shows interval development of free intraperitoneal air and loculated fluid in the lesser sac with slight fluid surrounding the spleen and within the cul-de-sac not present on the prior examination from one day ago. The patient was emergently taken to operating room by Dr. Sargent where she was discovered to have . Perforated posterior wall of the body of the stomach with irritation of the pancreas. 05/17: Extubated shortly after repair of posterior perforating gastric ulcer. Warm well perfused, urine output acceptable. Acid-base balance normal and electrolytes well repleted. Nasogastric tube to intermittent suction. Patient is breathing comfortably. Pain control is acceptable. Objective Vital Signs / I&O: Vital Signs 05/16/18 12:10 05/16/18 12:23 05/16/18 13:55 Temperature 98.8 F Pulse Rate 120 H 115 H 114 H Respiratory Rate 18 16 18 Blood Pressure 161/78 H 156/76 H 147/70 H Pulse Oximetry 95 95 96 05/16/18 15:27 05/16/18 18:19 05/16/18 18:30 Temperature 97.7 F Pulse Rate 120 H 105 H 99 H Respiratory Rate 16 12 22 Blood Pressure 152/72 H 74/38 L 95/51 L Pulse Oximetry 95 91 L 96 05/16/18 18:45 05/16/18 19:00 05/16/18 19:15 Temperature Pulse Rate 98 H 92 H 94 H Respiratory Rate 24 18 18 Blood Pressure 99/57 L 97/56 L 102/57 L Pulse Oximetry 96 97 98 05/16/18 19:30 05/16/18 20:00 05/16/18 21:02 Temperature 98.7 F Pulse Rate 93 H 94 H Respiratory Rate 15 22 Blood Pressure 105/58 L 115/62 Pulse Oximetry 96 95 97 05/17/18 00:00 05/17/18 04:00 05/17/18 06:50 Temperature 98.8 F 98.4 F Pulse Rate 95 H 93 H Respiratory Rate 21 14 20 Blood Pressure 111/64 109/56 L Pulse Oximetry 92 L 92 L 05/17/18 08:00 Temperature 98.4 F Pulse Rate 84 Respiratory Rate 12 Blood Pressure 109/60 Pulse Oximetry 94 L Intake & Output 05/16/18 05/17/18 05/17/18 18:59 06:59 18:59 Intake Total 4000 / 4000 1200 / 1200 100 / 100 Output Total 250 / 250 1430 / 1430 Balance 3750 / 3750 -230 / -230 100 / 100 Weight 72.575 kg 80.3 kg Intake: IV 1300 / 1300 1200 / 1200 100 / 100 NS Inj 1,000 ML @ 125 mls/hr IV 1000 / 1000 .CONT .Q8H TOSHIA Rx#:[id number] Ofirmev Inj 1,000 mg In 100 ml 100 / 100 @ 400 mls/hr IV.SIG Q6H [place] Rx# :[id number] Diflucan 400 mg Premix Bag 200 200 / 200 ML @ 100 mls/hr IV.SIG ONCE ONE Rx#:[id number] Zosyn 4.5 GM Premix 4.5 gm In 100 / 100 100 / 100 100 / 100 100 ml @ 200 mls/hr IV.SIG Q6H [place] Rx#:[id number] NS Inj 1,000 ML @ Wide Open IV. 1000 / 1000 SIG BOLUS ONE Rx#:[id number] Anesthesia Amount 2700 / 2700 Output: Stool 0 / 0 Estimated Blood Loss 50 / 50 Urine Amount (Catheter) 200 / 200 1200 / 1200 Indwelling Urethral Catheter 200 / 200 1200 / 1200 Wound Drainage 230 / 230 # 1 Abdomen 230 / 230 Other: Weight On Admission 72.575 kg Result Diagrams: 05/17/18 06:21 05/17/18 06:21 Objective Remarks: - Constitutional mild distress, minimal distress - Routine HEENT Exam Head: Present: normocephalic, atraumatic Eye: Present: EOMI, PERRL, normal accommodation ENT: Present: mucous membranes dry - Routine Neck Exam Present: supple, full ROM. Airway widely patent, no obstructive noises. Absent : JVD, carotid bruit - Routine Respiratory Exam Breath sounds clear. Absent: accessory muscle use, rhonchi, stridor, wheezes - Routine Cardiovascular Exam Present: RRR, S1, S2. No JVD. - Routine Abdominal Exam Present: soft, tenderness. Quiet. Absent: distended - Routine Extremities Exam Present: full ROM. Well-perfused. Absent: cyanosis, clubbing, edema - Routine Skin Exam Present: intact. Absent: cyanosis, erythema - Routine Neurological Exam Present: alert, oriented X3, moving all extremities, follows commands. Assessment and Plan - Assessment and Plan Plan: Perforated viscus Posterior gastric ulcer -Status post exploratory laparotomy and Tuan patch by Dr. Sargent - Placement of drain in the pancreas -Protonix IV twice daily -Zosyn and Diflucan empirically -IV fluid hydration -N.p.o. -Management per general surgery Rheumatoid arthritis -Chronic use of steroids -IV cortisol to avoid adrenal insufficiency -Resume low-dose prednisone when okay by surgery to p.o. Hypocalcemia -IV replacement DVT GI prophylaxis -Teds SCDs -Pharmacological DVT prophylaxis per general surgery -Protonix IV twice daily Overall impression: Stable hemodynamics and respiratory function. Progress as expected after emergency laparotomy for perforated gastric ulcer.
[2018-05-17] MEDS: Senna/Docusate Sodium 8.6/50 MG Tablet PO SCH ×2 (10:30→23:01)
[2018-05-17] MEDS: Pantoprazole Inj 40 MG Vial IV.PUSH SCH ×2 (10:31→19:42)
[2018-05-17] MEDS: Hydrocortisone Sod Succinate 100 MG Vial IV.PUSH SCH ×2 (10:35→21:00)
--- NOTE | 2018-05-17 15:34 | P.PNGS ---
Subjective Patient reports: feels better, still having pain, no flatus, no bowel movement Interval history: DAILY PROGRESS NOTE FOR SURGICAL ATTENDING, DR. GE DSOUZA Sitting up in the chair Appears comfortable with ASSISTANT EDUCATION DIRECTOR No shortness of breath chest pain Abdominal discomfort improved Physical Exam Vital signs: Vital Signs 05/16/18 18:19 05/16/18 18:30 05/16/18 18:45 Temperature 97.7 F Pulse Rate 105 H 99 H 98 H Respiratory Rate 12 22 24 Blood Pressure 74/38 L 95/51 L 99/57 L Pulse Oximetry 91 L 96 96 05/16/18 19:00 05/16/18 19:15 05/16/18 19:30 Temperature Pulse Rate 92 H 94 H 93 H Respiratory Rate 18 18 15 Blood Pressure 97/56 L 102/57 L 105/58 L Pulse Oximetry 97 98 96 05/16/18 20:00 05/16/18 21:02 05/17/18 00:00 Temperature 98.7 F 98.8 F Pulse Rate 94 H 95 H Respiratory Rate 22 21 Blood Pressure 115/62 111/64 Pulse Oximetry 95 97 92 L 05/17/18 04:00 05/17/18 06:50 05/17/18 08:00 Temperature 98.4 F 98.4 F Pulse Rate 93 H 84 Respiratory Rate 14 20 12 Blood Pressure 109/56 L 109/60 Pulse Oximetry 92 L 94 L 05/17/18 10:00 05/17/18 12:00 05/17/18 14:00 Temperature 98.3 F Pulse Rate 78 72 77 Respiratory Rate 14 Blood Pressure 107/57 L Pulse Oximetry 98 Intake & Output 05/16/18 05/17/18 05/17/18 18:59 06:59 18:59 Intake Total 4000 / 4000 1300 / 1300 1250 / 1250 Output Total 250 / 250 1430 / 1430 Balance 3750 / 3750 -130 / -130 1250 / 1250 Weight 72.575 kg 80.3 kg Intake: IV 1300 / 1300 1300 / 1300 1250 / 1250 NS Inj 1,000 ML @ 125 mls/hr IV 1000 / 1000 950 / 950 .CONT .Q8H [facility] Rx#:[id number] Ofirmev Inj 1,000 mg In 100 ml 200 / 200 100 / 100 @ 400 mls/hr IV.SIG Q6H [facility] Rx# :[id number] Diflucan 400 mg Premix Bag 200 200 / 200 ML @ 100 mls/hr IV.SIG ONCE ONE Rx#:[id number] Zosyn 4.5 GM Premix 4.5 gm In 100 / 100 100 / 100 200 / 200 100 ml @ 200 mls/hr IV.SIG Q6H [facility] Rx#:[id number] NS Inj 1,000 ML @ Wide Open IV. 1000 / 1000 SIG BOLUS ONE Rx#:[id number] Anesthesia Amount 2700 / 2700 Output: Stool 0 / 0 Estimated Blood Loss 50 / 50 Urine Amount (Catheter) 200 / 200 1200 / 1200 Indwelling Urethral Catheter 200 / 200 1200 / 1200 Wound Drainage 230 / 230 # 1 Abdomen 230 / 230 Other: Weight On Admission 72.575 kg Narrative: Patient alert oriented NG tube in place Neck is supple without lymphadenopathy no JVD No respiratory distress Heart regular rate Abdomen postsurgical TAMARA with serosanguineous drainage Neurologic alert and oriented Moves all extremities sequentials on - Urinary Catheter Management Indwelling Urethral Catheter Cath placed during this visit: yes Reason for continuing: Hourly intake/output Insertion date: 05/16/18 Insertion time: 16:54 Results - Labs 05/17/18 06:21 05/17/18 06:21 Laboratory Results - last 24 hr 05/16/18 05/16/18 05/16/18 12:35 15:17 21:30 WBC RBC Hgb Hct MCV MCH MCHC RDW Plt Count MPV Neut % (Auto) Lymph % (Auto) [place] % (Auto) Eos % (Auto) Baso % (Auto) Neut # (Auto) Lymph # (Auto) [place] # (Auto) Eos # (Auto) Baso # (Auto) WBC Differential Differential Comment Sodium Potassium Chloride Carbon Dioxide Anion Gap BUN Creatinine Estimated GFR Random Glucose Calcium Prot Corrected Calcium Total Protein Nasal Screen MRSA (PCR) Not detected Antibody Screen Negative Antibody Identification Cancelled Rout Panel Path Interp Cancelled 05/17/18 05/17/18 06:21 06:21 WBC 18.1 H D RBC 3.30 L Hgb 11.5 L D Hct 33.3 L MCV 101.0 H MCH 35.0 H MCHC 34.6 RDW 13.9 Plt Count 187 MPV 7.3 Neut % (Auto) 96.7 H Lymph % (Auto) 1.2 L [place] % (Auto) 2.0 Eos % (Auto) 0.0 Baso % (Auto) 0.1 Neut # (Auto) 17.5 H Lymph # (Auto) 0.2 L [place] # (Auto) 0.4 Eos # (Auto) 0.0 Baso # (Auto) 0.0 WBC Differential . Differential Comment Auto diff final Sodium 141 Potassium 4.1 Chloride 109 H Carbon Dioxide 24.9 Anion Gap 7 BUN 14 Creatinine 0.86 Estimated GFR 66 L Random Glucose 150 H Calcium 7.1 L* D Prot Corrected Calcium 8.3 L Total Protein 4.9 L D Nasal Screen MRSA (PCR) Antibody Screen Antibody Identification Rout Panel Path Interp - Imaging Imaging: ITS Impressions Abdomen/Pelvis CT 05/16/18 12:34 CONCLUSION: 1. Interval development of free intraperitoneal air and loculated fluid in the lesser sac with slight fluid surrounding the spleen and within the cul-de-sac not present on the prior examination from one day ago. 2. The exact etiology is not certain, however there is minimal questionable diminished attenuation of the head of the pancreas and possibility of acute pancreatitis should be entertained in addition to possibly perforated gastric ulcer. Assessment and Plan - Assessment (1) Perforated gastric ulcer Code(s): K25.5 - Chronic or unspecified gastric ulcer with perforation Status : Acute (2) Rheumatoid arteritis Code(s): I00 - Rheumatic fever without heart involvement Status: Acute (3) group home systemic steroid user Code(s): Z79.52 - group home (current) use of systemic steroids Status: Acute (4) History of pulmonary embolus (PE) Code(s): Z86.711 - Personal history of pulmonary embolism Status: Acute - Plan 63-year-old female with rheumatoid arthritis Recently started on steroids for control of her rheumatoid arthritis developed a perforated gastric ulcer She is postop day 1 from her surgical intervention She sitting up in the chair doing very well Discussed with the at bedside Discussed with Dr. Malik etymology teacher From general surgery standpoint okay to transfer out of the unit into the regular surgical floor Keep NG tube Keep Burks catheter Continue antibiotic and antifungals Continue high-dose Protonix Taper steroids - Attending Attestation NOTE FOR SURGICAL ATTENDING, DR. GE DSOUZA I attest that I had a [id number] encounter with the patient on the same day, and personally performed and documented my assessment and findings in the medical record. The following services were provided during this hospital visit: Chart data review, vital sign assessments/reviewing monitor data Review of consultations notes if present. Medication orders/review and/or management Ordering and/or reviewing lab tests Ordering and/or interpreting/reviewing x-rays and/or diagnostic studies Care of the patient and discussion of the patient with the care team Documentation time To help prompt me to consider important information that might be impacting today's encounter and assessment, Information from prior notes written by myself or my colleagues may have been "brought forward/copy and pasted" into today's note. (1) Perforated gastric ulcer Qualifiers: Gastric ulcer chronicity: acute Qualified Code(s): K25.1 - Acute gastric ulcer with perforation
[2018-05-17] MEDS: HYDROmorphone PCA Inj 6 MG/30 ML PCA.VIAL PCA PRN (16:07)
[2018-05-18] MEDS: Piperacil/Tazo 4.5 GM Premix 4.5 GM/100 ML BAG IV.SIG SCH ×4 (03:46→19:59)
[2018-05-18] MEDS: Sod Chloride 0.9% Inj 1,000 ML IV.CONT SCH ×3 (08:46→23:56)
[2018-05-18] MEDS: Pantoprazole Inj 40 MG Vial IV.PUSH SCH ×2 (08:46→19:59)
[2018-05-18] MEDS: Hydrocortisone Sod Succinate 100 MG Vial IV.PUSH SCH ×2 (08:46→20:00)
[2018-05-18] MEDS: Senna/Docusate Sodium 8.6/50 MG Tablet PO SCH ×2 (08:47→20:00)
--- NOTE | 2018-05-18 14:59 | P.PNIM ---
Subjective Interval history: Patient reports pain controlled. Passing gas. No bowel movement. No nausea or vomiting. Physical Exam Vital signs: Vital Signs 05/17/18 16:00 05/17/18 19:31 05/17/18 20:00 Temperature 98.2 F 98.0 F Pulse Rate 80 81 Respiratory Rate 16 15 Blood Pressure 112/59 L 116/66 Pulse Oximetry 95 94 L 96 05/17/18 20:37 05/18/18 00:00 05/18/18 04:00 Temperature 98.4 F 98.5 F Pulse Rate 86 86 Respiratory Rate 15 12 11 L Blood Pressure 107/53 L 106/57 L Pulse Oximetry 98 96 05/18/18 08:00 05/18/18 12:00 Temperature 98.5 F Pulse Rate 78 79 Respiratory Rate 12 Blood Pressure 115/61 Pulse Oximetry 95 Intake & Output 05/17/18 05/18/18 05/18/18 18:59 06:59 18:59 Intake Total 1450 / 1450 1200 / 1200 100 / 100 Output Total 1055 / 1055 30 / 30 Balance 395 / 395 1170 / 1170 100 / 100 Weight 83.2 kg Intake: IV 1450 / 1450 1200 / 1200 100 / 100 NS Inj 1,000 ML @ 125 mls/hr IV 950 / 950 1000 / 1000 .CONT .Q8H [facility] Rx#:[id number] Ofirmev Inj 1,000 mg In 100 ml 100 / 100 @ 400 mls/hr IV.SIG Q6H [facility] Rx# :[id number] Diflucan 200 mg Premix Bag 100 100 / 100 ML @ 100 mls/hr IV.SIG Q24H [facility] Rx#:[id number] Zosyn 4.5 GM Premix 4.5 gm In 300 / 300 200 / 200 100 / 100 100 ml @ 200 mls/hr IV.SIG Q6H [facility] Rx#:[id number] Output: Urine 0 / 0 Urine Amount (Catheter) 650 / 650 Indwelling Urethral Catheter 650 / 650 Gastric Drainage 250 / 250 Right Nare Nasogastric Tube 250 / 250 Wound Drainage 155 / 155 30 / 30 # 1 Abdomen 155 / 155 30 / 30 Other: # Bowel Movements 0 Narrative: GENERAL: This is a well-nourished, well-developed patient, in no apparent distress sitting up in chair with NG tube to suction. CARDIOVASCULAR: Regular rate and rhythm RESPIRATORY: Clear to auscultation. Breath sounds equal bilaterally. No wheezes , rales, or rhonchi. GASTROINTESTINAL: Abdomen soft, surgical bandages clean dry and intact with TAMARA drain in place, abdominal binder in place. Few bowel sounds. Generalized tenderness around incision site. MUSCULOSKELETAL: Extremities without clubbing, cyanosis, or edema. NEURO: Alert & Oriented x4 to person, place, time, situation. Moves all ext x4 - Urinary Catheter Management Indwelling Urethral Catheter Cath placed during this visit: yes, but has since been removed by the nurse Reason for continuing: Decision to DC catheter Insertion date: 05/16/18 Insertion time: 16:54 Removal date: 05/17/18 Removal time: 16:30 Results - Labs CBC & Chem 7: 05/17/18 06:21 05/17/18 06:21 Microbiology 05/16/18 12:45 Blood - Peripheral Aerobic Blood Culture - Preliminary No growth in 2 days 05/16/18 12:45 Blood - Peripheral Anaerobic Blood Culture - Preliminary No growth in 2 days 05/16/18 12:35 Blood - Peripheral Aerobic Blood Culture - Preliminary No growth in 2 days 05/16/18 12:35 Blood - Peripheral Anaerobic Blood Culture - Preliminary No growth in 2 days - Procedures 05/16 exploratory laparotomy and Tuan patch by Dr. Sargent - Placement of drain in the pancreas Assessment and Plan - Plan 63-year-old white female admitted for Perforated viscus with Posterior gastric ulcer -Status post operative day #2 exploratory laparotomy and Tuan patch by Dr. Sargent - Placement of drain in the pancreas -Continue Protonix IV twice daily -Zosyn and Diflucan empirically -IV fluid hydration -N.p.o. with NG tube to suction -Continue postoperative management per general surgery encourage physical therapy Repeat hemoglobin the morning. Rheumatoid arthritis -Chronic use of steroids -IV cortisol to avoid adrenal insufficiency -Resume low-dose prednisone when okay by surgery to p.o. Leukocytosislikely due to steroids. DVT GI prophylaxis -Teds SCDs -Pharmacological DVT prophylaxis per general surgery -Protonix IV twice daily
--- NOTE | 2018-05-18 17:05 | P.PNGS ---
Subjective Patient reports: feels better, flatus Interval history: DAILY PROGRESS NOTE FOR SURGICAL ATTENDING, DR. GE DSOUZA Physical Exam Vital signs: Vital Signs 05/17/18 19:31 05/17/18 20:00 05/17/18 20:37 Temperature 98.0 F Pulse Rate 81 Respiratory Rate 15 15 Blood Pressure 116/66 Pulse Oximetry 94 L 96 05/18/18 00:00 05/18/18 04:00 05/18/18 08:00 Temperature 98.4 F 98.5 F 98.5 F Pulse Rate 86 86 78 Respiratory Rate 12 11 L 12 Blood Pressure 107/53 L 106/57 L 115/61 Pulse Oximetry 98 96 95 05/18/18 12:00 05/18/18 16:00 Temperature 98.1 F 98.1 F Pulse Rate 78 86 Respiratory Rate 14 17 Blood Pressure 141/67 H 157/78 H Pulse Oximetry 93 L 96 Intake & Output 05/17/18 05/18/18 05/18/18 18:59 06:59 18:59 Intake Total 1450 / 1450 1200 / 1200 1300 / 1300 Output Total 1055 / 1055 30 / 30 Balance 395 / 395 1170 / 1170 1300 / 1300 Weight 83.2 kg Intake: IV 1450 / 1450 1200 / 1200 1300 / 1300 NS Inj 1,000 ML @ 125 mls/hr IV 950 / 950 1000 / 1000 1000 / 1000 .CONT .Q8H [facility] Rx#:[id number] Ofirmev Inj 1,000 mg In 100 ml 100 / 100 @ 400 mls/hr IV.SIG Q6H [facility] Rx# :[id number] Diflucan 200 mg Premix Bag 100 100 / 100 100 / 100 ML @ 100 mls/hr IV.SIG Q24H [facility] Rx#:[id number] Zosyn 4.5 GM Premix 4.5 gm In 300 / 300 200 / 200 200 / 200 100 ml @ 200 mls/hr IV.SIG Q6H [facility] Rx#:[id number] Output: Urine 0 / 0 Urine Amount (Catheter) 650 / 650 Indwelling Urethral Catheter 650 / 650 Gastric Drainage 250 / 250 Right Nare Nasogastric Tube 250 / 250 Wound Drainage 155 / 155 30 / 30 # 1 Abdomen 155 / 155 30 / 30 Other: # Bowel Movements 0 Narrative: Alert oriented NG tube in place Output noted Abdomen soft Ambulated around the ICU Awaiting transfer to regular floor - Urinary Catheter Management Indwelling Urethral Catheter Cath placed during this visit: yes, but has since been removed by the nurse Reason for continuing: Decision to DC catheter Insertion date: 05/16/18 Insertion time: 16:54 Removal date: 05/17/18 Removal time: 16:30 Results - Labs 05/17/18 06:21 05/17/18 06:21 - Imaging Imaging: ITS Impressions Abdomen/Pelvis CT 05/16/18 12:34 CONCLUSION: 1. Interval development of free intraperitoneal air and loculated fluid in the lesser sac with slight fluid surrounding the spleen and within the cul-de-sac not present on the prior examination from one day ago. 2. The exact etiology is not certain, however there is minimal questionable diminished attenuation of the head of the pancreas and possibility of acute pancreatitis should be entertained in addition to possibly perforated gastric ulcer. Assessment and Plan - Assessment (1) Perforated gastric ulcer Code(s): K25.5 - Chronic or unspecified gastric ulcer with perforation Status : Acute (2) Rheumatoid arteritis Code(s): I00 - Rheumatic fever without heart involvement Status: Acute (3) [place] systemic steroid user Code(s): Z79.52 - correction (current) use of systemic steroids Status: Acute (4) History of pulmonary embolus (PE) Code(s): Z86.711 - Personal history of pulmonary embolism Status: Acute - Plan 63-year-old female with rheumatoid arthritis Recently started on steroids for control of her rheumatoid arthritis developed a perforated gastric ulcer She is postop day 2from her surgical intervention She sitting up in the chair doing very well From general surgery standpoint okay to transfer out of the unit into the regular surgical floor Clamp NG tube DC Burks catheter Continue antibiotic and antifungals Continue high-dose Protonix Taper steroids - Attending Attestation NOTE FOR SURGICAL ATTENDING, DR. GE DSOUZA I attest that I had a [id number] encounter with the patient on the same day, and personally performed and documented my assessment and findings in the medical record. The following services were provided during this hospital visit: Chart data review, vital sign assessments/reviewing monitor data Review of consultations notes if present. Medication orders/review and/or management Ordering and/or reviewing lab tests Ordering and/or interpreting/reviewing x-rays and/or diagnostic studies Care of the patient and discussion of the patient with the care team Documentation time To help prompt me to consider important information that might be impacting today's encounter and assessment, Information from prior notes written by myself or my colleagues may have been "brought forward/copy and pasted" into today's note. (1) Perforated gastric ulcer Qualifiers: Gastric ulcer chronicity: acute Qualified Code(s): K25.1 - Acute gastric ulcer with perforation
[2018-05-18] MEDS: HYDROmorphone PCA Inj 6 MG/30 ML PCA.VIAL PCA PRN (23:52)
[2018-05-19] MEDS: Piperacil/Tazo 4.5 GM Premix 4.5 GM/100 ML BAG IV.SIG SCH ×4 (03:07→19:28)
[2018-05-19] MEDS: Sod Chloride 0.9% Inj 1,000 ML IV.CONT SCH ×3 (06:55→22:00)
[2018-05-19 07:45] LABS: Baso % (Auto) 0.2 % (0.0-2.0); Eos # (Auto) 0.4 th/mm3 (0.0-0.4); Hematocrit 33.8 % (35.0-46.0); Hemoglobin 11.6 gm/dL (11.6-15.3); Lymph # (Auto) 0.8 th/mm3 (1.0-4.8); Lymph % (Auto) 5.9 % (9.0-44.0); Mean Corpuscular HGB Conc 34.5 % (32.0-36.0); Mean Corpuscular Hemoglobin 34.9 pg (27.0-34.0); Mean Corpuscular Volume 101.2 fL (80.0-100.0); Mean Platelet Volume 7.5 fL (7.0-11.0); Mono # (Auto) 0.9 th/mm3 (0.0-0.9); Mono % (Auto) 6.7 % (0.0-8.0); Neut # (Auto) 11.6 th/mm3 (1.8-7.7); Neut % (Auto) 84.2 % (16.0-70.0); Platelet Count 189 th/mm3 (150-450); Red Blood Count 3.33 mil/mm3 (4.00-5.30); Red Cell Distribution Width 13.3 % (11.6-17.2); White Blood Count 13.8 th/mm3 (4.0-11.0)
[2018-05-19 08:12] LABS: Anion Gap 9 meq/L (5-15); Blood Urea Nitrogen 16 mg/dL (7-18); Carbon Dioxide 23.7 meq/L (21.0-32.0); Chloride 110 meq/L (98-107); Glomerular Filtration Rate Greater Than 89 mL/min (>89); Glucose,Random 67 mg/dL (74-106); Potassium 3.2 meq/L (3.5-5.1); Sodium 143 meq/L (136-145)
[2018-05-19] MEDS: Senna/Docusate Sodium 8.6/50 MG Tablet PO SCH ×3 (08:41→21:18)
[2018-05-19] MEDS: Pantoprazole Inj 40 MG Vial IV.PUSH SCH ×2 (08:42→19:29)
[2018-05-19] MEDS: Hydrocortisone Sod Succinate 100 MG Vial IV.PUSH SCH ×3 (08:43→21:18)
--- NOTE | 2018-05-19 13:14 | P.PNIM ---
Subjective Interval history: Follow-up perforated viscus with posterior gastric ulcer, leukocytosis, rheumatoid arthritis. Patient seen and examined, laying in bed, family at bedside. Patient denies any pain, nausea or vomiting. Patient states that she just wants her NG tube out due to discomfort. Patient denies any abdominal pain. Patient hoping she can eat. Patient denies any headache or dizziness, denies any chest pain or shortness of breath, denies any fever or chills. Has been in the room, answers concerns. Discussed lab results. Physical Exam Vital signs: Vital Signs 05/18/18 16:00 05/18/18 20:00 05/19/18 00:00 Temperature 98.1 F 98.6 F 98.2 F Pulse Rate 86 74 104 H Respiratory Rate 17 20 20 Blood Pressure 157/78 H 154/74 H 167/85 H Pulse Oximetry 96 96 93 L 05/19/18 04:00 05/19/18 06:56 05/19/18 08:00 Temperature 97.8 F 97.9 F Pulse Rate 73 63 Respiratory Rate 18 18 18 Blood Pressure 136/74 156/91 H Pulse Oximetry 92 L 95 Intake & Output 05/18/18 05/19/18 05/19/18 18:59 06:59 18:59 Intake Total 1300 / 1300 1200 / 1200 100 / 100 Output Total 980 / 980 30 / 30 Balance 320 / 320 1200 / 1200 70 / 70 Weight 80.9 kg Intake: IV 1300 / 1300 1200 / 1200 100 / 100 NS Inj 1,000 ML @ 125 mls/hr IV 1000 / 1000 1000 / 1000 .CONT .Q8H [facility] Rx#:[id number] Diflucan 200 mg Premix Bag 100 100 / 100 ML @ 100 mls/hr IV.SIG Q24H [facility] Rx#:[id number] Zosyn 4.5 GM Premix 4.5 gm In 200 / 200 200 / 200 100 / 100 100 ml @ 200 mls/hr IV.SIG Q6H [facility] Rx#:[id number] Output: Urine 350 / 350 Gastric Drainage 600 / 600 Right Nare Nasogastric Tube 600 / 600 Wound Drainage 30 / 30 30 / 30 # 1 Abdomen 30 / 30 30 / 30 Other: # Voids 1 2 # Bowel Movements 0 Narrative: GENERAL: Well-developed, well-nourished, female, in no apparent distress SKIN: Warm and dry. HEAD: Atraumatic. Normocephalic. EYES: Pupils equal and round. No scleral icterus. No injection or drainage. ENT: No nasal bleeding or discharge. Mucous membranes pink and moist. NECK: Trachea midline. No JVD. CARDIOVASCULAR: Regular rate and rhythm. RESPIRATORY: No accessory muscle use. Clear to auscultation. Breath sounds equal bilaterally. GASTROINTESTINAL: Abdomen soft, non-tender, nondistended. Hepatic and splenic margins not palpable. Mid abdominal incision dressed dry drainage noted left upper quadrant with TAMARA drain with considerable amount of serosanguineous drainage MUSCULOSKELETAL: Extremities without clubbing, cyanosis, or edema. No obvious deformities. NEUROLOGICAL: Awake and alert. No obvious cranial nerve deficits. Motor grossly within normal limits. Five out of 5 muscle strength in the arms and legs. Normal speech. PSYCHIATRIC: Appropriate mood and affect; insight and judgment normal. - Urinary Catheter Management Indwelling Urethral Catheter Cath placed during this visit: yes, but has since been removed by the nurse Reason for continuing: Decision to DC catheter Insertion date: 05/16/18 Insertion time: 16:54 Removal date: 05/17/18 Removal time: 16:30 Results - Labs CBC & Chem 7: 05/19/18 06:21 05/19/18 06:21 Laboratory Results - last 24 hr 05/19/18 05/19/18 06:21 06:21 WBC 13.8 H RBC 3.33 L Hgb 11.6 Hct 33.8 L MCV 101.2 H MCH 34.9 H MCHC 34.5 RDW 13.3 Plt Count 189 MPV 7.5 Neut % (Auto) 84.2 H Lymph % (Auto) 5.9 L [place] % (Auto) 6.7 Eos % (Auto) 3.0 Baso % (Auto) 0.2 Neut # (Auto) 11.6 H Lymph # (Auto) 0.8 L [place] # (Auto) 0.9 Eos # (Auto) 0.4 Baso # (Auto) 0.0 WBC Differential . Differential Comment Auto diff final Sodium 143 Potassium 3.2 L D Chloride 110 H Carbon Dioxide 23.7 Anion Gap 9 BUN 16 Creatinine 0.52 Estimated GFR Greater than 89 Random Glucose 67 L Calcium 8.0 L D Microbiology 05/16/18 12:45 Blood - Peripheral Aerobic Blood Culture - Preliminary No growth in 3 days 05/16/18 12:45 Blood - Peripheral Anaerobic Blood Culture - Preliminary No growth in 3 days 05/16/18 12:35 Blood - Peripheral Aerobic Blood Culture - Preliminary No growth in 3 days 05/16/18 12:35 Blood - Peripheral Anaerobic Blood Culture - Preliminary No growth in 3 days - Procedures 05/16 exploratory laparotomy and Tuan patch by Dr. Sargent - Placement of drain in the pancreas Assessment and Plan - Plan This is a 63-year-old female admitted for perforated viscus with posterior gastric ulcer likely related to the use of steroids for the treatment of rheumatoid arthritis Perforated viscus with Posterior gastric ulcer -Status post operative day #3 exploratory laparotomy and Tuan patch by Dr. Sargent - Placement of drain in the pancreas -Continue Protonix IV twice daily -Zosyn and Diflucan empirically -IV fluid hydration -N.p.o. with NG tube clamped -Continue postoperative management per general surgery -encourage physical therapy -Repeat hemoglobin 11.6 today -Monitor CBC Rheumatoid arthritis -Chronic use of steroids -IV cortisol to avoid adrenal insufficiency -Resume low-dose prednisone when okay by surgery to p.o. Leukocytosis -likely due to steroids -No fever chills Monitor CBC Hypertension Labile blood pressure, likely acute on chronic Add as needed clonidine Monitor blood pressure Hypokalemia -Replaced KCl -Monitor BMP, replace as needed DVT prophylaxis -Teds SCDs -Pharmacological DVT prophylaxis per general surgery GI prophylaxis -Protonix IV twice daily Code Status: Full code Discussed Condition With: Patient, family, and nurse
--- NOTE | 2018-05-19 15:04 | P.DIET ---
Nutritional Evaluation Type of nutrition evaluation: initial Screening comments: NPO Screen Objective - Diagnosis Perforated Bowel, Peritonitis - Objective Dietitian Reviewed in Medical Record: Current diet, Curent medications, Intake & Output, Labs, Medical history Diet Order: NPO Assessment Assessment: Pt is an NPO Screen. NPO x 3-days. Please Consult RD if Needed. Recommendations: 1. NPO x 3-days 2. Please Consult RD if Needed
--- NOTE | 2018-05-19 16:11 | P.PN ---
Subjective Interval history: NOT SEEN Physical Exam Vital signs: Vital Signs 05/18/18 20:00 05/19/18 00:00 05/19/18 04:00 Temperature 98.6 F 98.2 F 97.8 F Pulse Rate 74 104 H 73 Respiratory Rate 20 20 18 Blood Pressure 154/74 H 167/85 H 136/74 Pulse Oximetry 96 93 L 92 L 05/19/18 06:56 05/19/18 08:00 05/19/18 12:00 Temperature 97.9 F 97.9 F Pulse Rate 63 75 Respiratory Rate 18 18 16 Blood Pressure 156/91 H 178/79 H Pulse Oximetry 95 95 Intake & Output 05/18/18 05/19/18 05/19/18 18:59 06:59 18:59 Intake Total 1300 / 1300 1200 / 1200 300 / 300 Output Total 980 / 980 30 / 30 Balance 320 / 320 1200 / 1200 270 / 270 Weight 80.9 kg Intake: IV 1300 / 1300 1200 / 1200 300 / 300 NS Inj 1,000 ML @ 125 mls/hr IV 1000 / 1000 1000 / 1000 .CONT .Q8H [facility] Rx#:[id number] Diflucan 200 mg Premix Bag 100 100 / 100 100 / 100 ML @ 100 mls/hr IV.SIG Q24H [facility] Rx#:[id number] Zosyn 4.5 GM Premix 4.5 gm In 200 / 200 200 / 200 200 / 200 100 ml @ 200 mls/hr IV.SIG Q6H [facility] Rx#:[id number] Output: Urine 350 / 350 Gastric Drainage 600 / 600 Right Nare Nasogastric Tube 600 / 600 Wound Drainage 30 / 30 30 / 30 # 1 Abdomen 30 / 30 30 / 30 Other: # Voids 1 2 # Bowel Movements 0 Narrative: GENERAL: Well-developed, well-nourished, female, in no apparent distress SKIN: Warm and dry. CARDIOVASCULAR: Regular rate and rhythm. RESPIRATORY: No accessory muscle use. Clear to auscultation. Breath sounds equal bilaterally. GASTROINTESTINAL: Abdomen soft, non-tender, nondistended. Mid abdominal incision dressed dry drainage noted left upper quadrant with TAMARA drain with considerable amount of serosanguineous drainage MUSCULOSKELETAL: Extremities without clubbing, cyanosis, or edema. No obvious deformities. NEUROLOGICAL: Awake and alert. No obvious cranial nerve deficits. Motor grossly within normal limits. Five out of 5 muscle strength in the arms and legs. Normal speech. PSYCHIATRIC: Appropriate mood and affect; insight and judgment normal. - Urinary Catheter Management Indwelling Urethral Catheter Cath placed during this visit: yes, but has since been removed by the nurse Reason for continuing: Decision to DC catheter Insertion date: 05/16/18 Insertion time: 16:54 Removal date: 05/17/18 Removal time: 16:30 Results - Labs CBC & Chem 7: 05/19/18 06:21 05/19/18 06:21 Laboratory Results - last 24 hr 05/19/18 05/19/18 06:21 06:21 WBC 13.8 H RBC 3.33 L Hgb 11.6 Hct 33.8 L MCV 101.2 H MCH 34.9 H MCHC 34.5 RDW 13.3 Plt Count 189 MPV 7.5 Neut % (Auto) 84.2 H Lymph % (Auto) 5.9 L Shelby % (Auto) 6.7 Eos % (Auto) 3.0 Baso % (Auto) 0.2 Neut # (Auto) 11.6 H Lymph # (Auto) 0.8 L Shelby # (Auto) 0.9 Eos # (Auto) 0.4 Baso # (Auto) 0.0 WBC Differential . Differential Comment Auto diff final Sodium 143 Potassium 3.2 L D Chloride 110 H Carbon Dioxide 23.7 Anion Gap 9 BUN 16 Creatinine 0.52 Estimated GFR Greater than 89 Random Glucose 67 L Calcium 8.0 L D Microbiology 05/16/18 12:45 Blood - Peripheral Aerobic Blood Culture - Preliminary No growth in 3 days 05/16/18 12:45 Blood - Peripheral Anaerobic Blood Culture - Preliminary No growth in 3 days 05/16/18 12:35 Blood - Peripheral Aerobic Blood Culture - Preliminary No growth in 3 days 05/16/18 12:35 Blood - Peripheral Anaerobic Blood Culture - Preliminary No growth in 3 days - Imaging ITS Impressions Abdomen/Pelvis CT 05/16/18 12:34 CONCLUSION: 1. Interval development of free intraperitoneal air and loculated fluid in the lesser sac with slight fluid surrounding the spleen and within the cul-de-sac not present on the prior examination from one day ago. 2. The exact etiology is not certain, however there is minimal questionable diminished attenuation of the head of the pancreas and possibility of acute pancreatitis should be entertained in addition to possibly perforated gastric ulcer. - Procedures 05/16 exploratory laparotomy and Tuan patch by Dr. Sargent - Placement of drain in the pancreas Assessment and Plan - Plan This is a 63-year-old female admitted for perforated viscus with posterior gastric ulcer likely related to the use of steroids for the treatment of rheumatoid arthritis Perforated viscus with Posterior gastric ulcer -Status post exploratory laparotomy and Tuan patch by Dr. Sargent - Placement of drain in the pancreas -Continue Protonix IV twice daily -Zosyn and Diflucan empirically -IV fluid hydration -clear liquid advance as tolerated . RD ff -Continue postoperative management per general surgery -encourage physical therapy -Monitor CBC Rheumatoid arthritis -Chronic use of steroids -IV solucortef to avoid adrenal insufficiency -Resume low-dose prednisone when okay by surgery to p.o. Leukocytosis -likely due to steroids -No fever chills Monitor CBC Hypertension Labile blood pressure Monitor blood pressure with clonidine Hypokalemia -Replaced KCl -Monitor BMP, replace as needed DVT prophylaxis -Teds SCDs -Pharmacological DVT prophylaxis per general surgery GI prophylaxis -Protonix IV twice daily
--- NOTE | 2018-05-19 16:11 | P.PNGS ---
Subjective Patient reports: feels better, flatus ( ---DAILY PROGRESS NOTE FOR SURGICAL ATTENDING, DR. GE DSOUZA ), bowel movement Interval history: DAILY PROGRESS NOTE FOR SURGICAL ATTENDING, DR. GE DSOUZA Patient doing very well Sitting up in chair Passing flatus Had 2 bowel movements Physical Exam Vital signs: Vital Signs 05/18/18 20:00 05/19/18 00:00 05/19/18 04:00 Temperature 98.6 F 98.2 F 97.8 F Pulse Rate 74 104 H 73 Respiratory Rate 20 20 18 Blood Pressure 154/74 H 167/85 H 136/74 Pulse Oximetry 96 93 L 92 L 05/19/18 06:56 05/19/18 08:00 05/19/18 12:00 Temperature 97.9 F 97.9 F Pulse Rate 63 75 Respiratory Rate 18 18 16 Blood Pressure 156/91 H 178/79 H Pulse Oximetry 95 95 Intake & Output 05/18/18 05/19/18 05/19/18 18:59 06:59 18:59 Intake Total 1300 / 1300 1200 / 1200 300 / 300 Output Total 980 / 980 30 / 30 Balance 320 / 320 1200 / 1200 270 / 270 Weight 80.9 kg Intake: IV 1300 / 1300 1200 / 1200 300 / 300 NS Inj 1,000 ML @ 125 mls/hr IV 1000 / 1000 1000 / 1000 .CONT .Q8H [facility] Rx#:[id number] Diflucan 200 mg Premix Bag 100 100 / 100 100 / 100 ML @ 100 mls/hr IV.SIG Q24H [facility] Rx#:[id number] Zosyn 4.5 GM Premix 4.5 gm In 200 / 200 200 / 200 200 / 200 100 ml @ 200 mls/hr IV.SIG Q6H [facility] Rx#:[id number] Output: Urine 350 / 350 Gastric Drainage 600 / 600 Right Nare Nasogastric Tube 600 / 600 Wound Drainage 30 / 30 30 / 30 # 1 Abdomen 30 / 30 30 / 30 Other: # Voids 1 2 # Bowel Movements 0 Narrative: Alert oriented Sitting up in chair Abdomen soft NG tube removed Reported 2 bowel movements and flatus - Urinary Catheter Management Indwelling Urethral Catheter Cath placed during this visit: yes, but has since been removed by the nurse Reason for continuing: Decision to DC catheter Insertion date: 05/16/18 Insertion time: 16:54 Removal date: 05/17/18 Removal time: 16:30 Results - Labs 05/19/18 06:21 05/19/18 06:21 Laboratory Results - last 24 hr 05/19/18 05/19/18 06:21 06:21 WBC 13.8 H RBC 3.33 L Hgb 11.6 Hct 33.8 L MCV 101.2 H MCH 34.9 H MCHC 34.5 RDW 13.3 Plt Count 189 MPV 7.5 Neut % (Auto) 84.2 H Lymph % (Auto) 5.9 L Posey % (Auto) 6.7 Eos % (Auto) 3.0 Baso % (Auto) 0.2 Neut # (Auto) 11.6 H Lymph # (Auto) 0.8 L Posey # (Auto) 0.9 Eos # (Auto) 0.4 Baso # (Auto) 0.0 WBC Differential . Differential Comment Auto diff final Sodium 143 Potassium 3.2 L D Chloride 110 H Carbon Dioxide 23.7 Anion Gap 9 BUN 16 Creatinine 0.52 Estimated GFR Greater than 89 Random Glucose 67 L Calcium 8.0 L D - Imaging Imaging: ITS Impressions Abdomen/Pelvis CT 05/16/18 12:34 CONCLUSION: 1. Interval development of free intraperitoneal air and loculated fluid in the lesser sac with slight fluid surrounding the spleen and within the cul-de-sac not present on the prior examination from one day ago. 2. The exact etiology is not certain, however there is minimal questionable diminished attenuation of the head of the pancreas and possibility of acute pancreatitis should be entertained in addition to possibly perforated gastric ulcer. Assessment and Plan - Assessment (1) Perforated gastric ulcer Code(s): K25.5 - Chronic or unspecified gastric ulcer with perforation Status : Acute (2) Rheumatoid arteritis Code(s): I00 - Rheumatic fever without heart involvement Status: Acute (3) MCC systemic steroid user Code(s): Z79.52 - MCC (current) use of systemic steroids Status: Acute (4) History of pulmonary embolus (PE) Code(s): Z86.711 - Personal history of pulmonary embolism Status: Acute - Plan 63-year-old female with rheumatoid arthritis Recently started on steroids for control of her rheumatoid arthritis developed a perforated gastric ulcer She is postop day 3 from her surgical intervention She sitting up in the chair doing very well DC NG tube Continue antibiotic and antifungals Continue high-dose Protonix Taper steroids Discussed with Anticipate discharge Tuesday or Tuesday she will come back and see me on Tuesday in the office with a TAMARA in place When she returns to [place] she will require to visit a general surgeon and a manager summer follow-up - Attending Attestation NOTE FOR SURGICAL ATTENDING, DR. GE DSOUZA I attest that I had a [id number] encounter with the patient on the same day, and personally performed and documented my assessment and findings in the medical record. The following services were provided during this hospital visit: Chart data review, vital sign assessments/reviewing monitor data Review of consultations notes if present. Medication orders/review and/or management Ordering and/or reviewing lab tests Ordering and/or interpreting/reviewing x-rays and/or diagnostic studies Care of the patient and discussion of the patient with the care team Documentation time To help prompt me to consider important information that might be impacting today's encounter and assessment, Information from prior notes written by myself or my colleagues may have been "brought forward/copy and pasted" into today's note. (1) Perforated gastric ulcer Qualifiers: Qualified Code(s): K25.1 - Acute gastric ulcer with perforation
[2018-05-20] MEDS: Piperacil/Tazo 4.5 GM Premix 4.5 GM/100 ML BAG IV.SIG SCH ×4 (02:59→20:13)
[2018-05-20 07:14] LABS: Alanine Aminotransferase 26 U/L (10-53); Albumin 2.4 g/dL (3.4-5.0); Alkaline Phosphatase 65 U/L (45-117); Anion Gap 8 meq/L (5-15); Aspartate Aminotransferase 23 U/L (15-37); Blood Urea Nitrogen 9 mg/dL (7-18); Calcium 7.1 mg/dL (8.5-10.1); Carbon Dioxide 25.3 meq/L (21.0-32.0); Chloride 108 meq/L (98-107); Glomerular Filtration Rate Greater Than 89 mL/min (>89); Glucose,Random 84 mg/dL (74-106); Magnesium 1.9 mg/dL (1.5-2.5); Sodium 141 meq/L (136-145); Total Protein 4.9 g/dL (6.4-8.2)
[2018-05-20] MEDS: Pantoprazole Inj 40 MG Vial IV.PUSH SCH (08:58)
[2018-05-20] MEDS: Hydrocortisone Sod Succinate 100 MG Vial IV.PUSH SCH (08:58)
[2018-05-20] MEDS: Senna/Docusate Sodium 8.6/50 MG Tablet PO SCH ×2 (08:59→20:13)
[2018-05-20] MEDS: Sod Chloride 0.9% Inj 1,000 ML IV.CONT SCH ×3 (09:03→22:08)
--- NOTE | 2018-05-20 09:45 | P.PNGS ---
Subjective Patient reports: no new complaints, flatus, bowel movement, diarrhea Physical Exam Vital signs: Vital Signs 05/19/18 12:00 05/19/18 16:00 05/19/18 17:54 Temperature 97.9 F 98.3 F Pulse Rate 75 61 Respiratory Rate 16 20 Blood Pressure 178/79 H 161/75 H Pulse Oximetry 95 97 97 05/19/18 20:00 05/20/18 00:00 05/20/18 04:00 Temperature 98.1 F 97.9 F 97.9 F Pulse Rate 69 75 71 Respiratory Rate 18 17 18 Blood Pressure 169/74 H 144/67 H 148/71 H Pulse Oximetry 97 96 92 L 05/20/18 08:00 Temperature 97.8 F Pulse Rate 69 Respiratory Rate 18 Blood Pressure 165/84 H Pulse Oximetry 94 L Intake & Output 05/19/18 05/20/18 05/20/18 18:59 06:59 18:59 Intake Total 1655 / 1655 700 / 700 1000 / 1000 Output Total 130 / 130 Balance 1525 / 1525 700 / 700 1000 / 1000 Weight 80.9 kg Intake: IV 1655 / 1655 200 / 200 1000 / 1000 NS Inj 1,000 ML @ 80 mls/hr IV. 1355 / 1355 1000 / 1000 CONT .[id number] [facility] Rx#: [id number] Diflucan 200 mg Premix Bag 100 100 / 100 ML @ 100 mls/hr IV.SIG Q24H [facility] Rx#:[id number] Zosyn 4.5 GM Premix 4.5 gm In 200 / 200 200 / 200 100 ml @ 200 mls/hr IV.SIG Q6H [facility] Rx#:[id number] Oral 500 / 500 Output: Wound Drainage 130 / 130 # 1 Abdomen 130 / 130 Other: # Voids 1 # Bowel Movements 2 - Routine Respiratory Exam Present: CTA bilaterally - Routine Cardiovascular Exam Present: RRR - Routine Abdominal Exam Present: soft (incision with riley c/d/i rafael serosang) - Urinary Catheter Management Indwelling Urethral Catheter Cath placed during this visit: yes, but has since been removed by the nurse Reason for continuing: Decision to DC catheter Insertion date: 05/16/18 Insertion time: 16:54 Removal date: 05/17/18 Removal time: 16:30 Results - Labs 05/19/18 06:21 05/20/18 05:28 Laboratory Results - last 24 hr 05/20/18 05:28 Sodium 141 Potassium 3.0 L Chloride 108 H Carbon Dioxide 25.3 Anion Gap 8 BUN 9 Creatinine 0.56 Estimated GFR Greater than 89 Random Glucose 84 Calcium 7.1 L* D Prot Corrected Calcium 8.3 L Magnesium 1.9 Total Bilirubin 0.4 AST 23 ALT 26 Alkaline Phosphatase 65 Total Protein 4.9 L Albumin 2.4 L - Imaging Imaging: ITS Impressions Abdomen/Pelvis CT 05/16/18 12:34 CONCLUSION: 1. Interval development of free intraperitoneal air and loculated fluid in the lesser sac with slight fluid surrounding the spleen and within the cul-de-sac not present on the prior examination from one day ago. 2. The exact etiology is not certain, however there is minimal questionable diminished attenuation of the head of the pancreas and possibility of acute pancreatitis should be entertained in addition to possibly perforated gastric ulcer. 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
--- NOTE | 2018-05-20 09:45 | P.PNIM ---
Subjective Interval history: The patient said that her pain was a 2 or 3 out of 10. She said that she has been having diarrhea in response to the liquid diet. She says she is still on a pain pump. Discussed with nursing. Physical Exam Vital signs: Vital Signs 05/19/18 12:00 05/19/18 16:00 05/19/18 17:54 Temperature 97.9 F 98.3 F Pulse Rate 75 61 Respiratory Rate 16 20 Blood Pressure 178/79 H 161/75 H Pulse Oximetry 95 97 97 05/19/18 20:00 05/20/18 00:00 05/20/18 04:00 Temperature 98.1 F 97.9 F 97.9 F Pulse Rate 69 75 71 Respiratory Rate 18 17 18 Blood Pressure 169/74 H 144/67 H 148/71 H Pulse Oximetry 97 96 92 L 05/20/18 08:00 Temperature 97.8 F Pulse Rate 69 Respiratory Rate 18 Blood Pressure 165/84 H Pulse Oximetry 94 L Intake & Output 05/19/18 05/20/18 05/20/18 18:59 06:59 18:59 Intake Total 1655 / 1655 700 / 700 1000 / 1000 Output Total 130 / 130 Balance 1525 / 1525 700 / 700 1000 / 1000 Weight 80.9 kg Intake: IV 1655 / 1655 200 / 200 1000 / 1000 NS Inj 1,000 ML @ 80 mls/hr IV. 1355 / 1355 1000 / 1000 CONT .[id number] [facility] Rx#: [id number] Diflucan 200 mg Premix Bag 100 100 / 100 ML @ 100 mls/hr IV.SIG Q24H [facility] Rx#:[id number] Zosyn 4.5 GM Premix 4.5 gm In 200 / 200 200 / 200 100 ml @ 200 mls/hr IV.SIG Q6H [facility] Rx#:[id number] Oral 500 / 500 Output: Wound Drainage 130 / 130 # 1 Abdomen 130 / 130 Other: # Voids 1 # Bowel Movements 2 Narrative: GENERAL: Well-developed, well-nourished, in no apparent distress SKIN: Warm and dry. CARDIOVASCULAR: Regular rate and rhythm. RESPIRATORY: No accessory muscle use. Clear to auscultation. Breath sounds equal bilaterally. GASTROINTESTINAL: Abdomen soft, non-tender, nondistended. Mid abdominal incision clean and dry with TAMARA drain in place. MUSCULOSKELETAL: Extremities without clubbing, cyanosis, or edema. No obvious deformities. NEUROLOGICAL: Awake and alert. No obvious cranial nerve deficits. Motor grossly within normal limits. Five out of 5 muscle strength in the arms and legs. Normal speech. PSYCHIATRIC: Appropriate mood and affect; insight and judgment normal. - Urinary Catheter Management Indwelling Urethral Catheter Cath placed during this visit: yes, but has since been removed by the nurse Reason for continuing: Decision to DC catheter Insertion date: 05/16/18 Insertion time: 16:54 Removal date: 05/17/18 Removal time: 16:30 Results - Labs CBC & Chem 7: 05/19/18 06:21 05/20/18 05:28 Laboratory Results - last 24 hr 05/20/18 05:28 Sodium 141 Potassium 3.0 L Chloride 108 H Carbon Dioxide 25.3 Anion Gap 8 BUN 9 Creatinine 0.56 Estimated GFR Greater than 89 Random Glucose 84 Calcium 7.1 L* D Prot Corrected Calcium 8.3 L Magnesium 1.9 Total Bilirubin 0.4 AST 23 ALT 26 Alkaline Phosphatase 65 Total Protein 4.9 L Albumin 2.4 L Microbiology 05/16/18 12:45 Blood - Peripheral Aerobic Blood Culture - Preliminary No growth in 3 days 05/16/18 12:45 Blood - Peripheral Anaerobic Blood Culture - Preliminary No growth in 3 days 05/16/18 12:35 Blood - Peripheral Aerobic Blood Culture - Preliminary No growth in 3 days 05/16/18 12:35 Blood - Peripheral Anaerobic Blood Culture - Preliminary No growth in 3 days - Procedures 05/16 exploratory laparotomy and Tuan patch by Dr. Sargent - Placement of drain in the pancreas Assessment and Plan - Plan This is a 63-year-old female admitted for perforated viscus with posterior gastric ulcer likely related to the treatment of rheumatoid arthritis. Perforated viscus with Posterior gastric ulcer -Status post exploratory laparotomy and Tuan patch by Dr. Sargent. -Placement of drain in the pancreas. -Continue Protonix. -Zosyn and Diflucan empirically. -Continue postoperative management per general surgery. Currently on clear liquid diet. -encourage physical therapy. -d/c MANAGER OPERATIONS. Loop as needed. Rheumatoid arthritis Has been on Mobic and prednisone. -IV Solucortef changed to prednisone 10 mg BID. Wean as tolerated. Leukocytosis Likely due to steroids -follow CBC as needed. Hypertension Labile blood pressure. -clonidine as needed. Hypokalemia S/t diarrhea and decreased PO intake. -Replaced KCl. -Monitor BMP, replace as needed. -ADAT. DVT prophylaxis -Teds SCDs -Pharmacological DVT prophylaxis per general surgery Discharge Planning: D/c in AM if diet advanced and hypokalemia is stable
[2018-05-20] MEDS ORDERED: Potassium Chloride 25 MEQ Effervescent Tablet PO ONE (10:00)
[2018-05-20] MEDS ORDERED: Calcium Carbonate 500 MG Tablet PO ONE (10:00)
[2018-05-20] MEDS: predniSONE 10 MG Tablet PO SCH (20:14)
[2018-05-21 00:22] VITALS: RESP 16
[2018-05-21] MEDS: Piperacil/Tazo 4.5 GM Premix 4.5 GM/100 ML BAG IV.SIG SCH ×3 (01:28→14:35)
[2018-05-21 04:12] LABS: Hematocrit 33.5 % (35.0-46.0); Hemoglobin 11.7 gm/dL (11.6-15.3); Mean Corpuscular Hemoglobin 34.9 pg (27.0-34.0); Mean Corpuscular Volume 99.6 fL (80.0-100.0); Mean Platelet Volume 6.6 fL (7.0-11.0); Platelet Count 223 th/mm3 (150-450); Red Blood Count 3.36 mil/mm3 (4.00-5.30); Red Cell Distribution Width 13.5 % (11.6-17.2); White Blood Count 11.3 th/mm3 (4.0-11.0)
[2018-05-21 04:35] LABS: Anion Gap 8 meq/L (5-15); Blood Urea Nitrogen 5 mg/dL (7-18); Calcium 7.5 mg/dL (8.5-10.1); Chloride 107 meq/L (98-107); Glomerular Filtration Rate Greater Than 89 mL/min (>89); Glucose,Random 137 mg/dL (74-106); Magnesium 1.8 mg/dL (1.5-2.5); Phosphorus 2.2 mg/dL (2.5-4.9); Potassium 3.1 meq/L (3.5-5.1); Sodium 142 meq/L (136-145)
[2018-05-21] MEDS: Senna/Docusate Sodium 8.6/50 MG Tablet PO SCH (08:30)
[2018-05-21] MEDS: predniSONE 10 MG Tablet PO SCH (08:30)
[2018-05-21] MEDS ORDERED: Potassium Chloride 25 MEQ Effervescent Tablet PO ONE (09:00)
[2018-05-21] MEDS ORDERED: Potassium Phosphate 500 MG Soluble Tablet PO ONE (09:39)
--- NOTE | 2018-05-21 09:48 | P.DS ---
Date of admission: 05/16/18 14:00 Primary care physician: UNKNOWN Anticipated date of discharge: 05/21/18 Brief History from admission: 63-year-old female with history of rheumatoid arthritis, presents for an evaluation of severe abdominal pain. The patient was seen in the emergency department yesterday for the same. She had a CT abdomen pelvis that showed no acute intra-abdominal abnormality. Her pain was relieved only for a short time with morphine in the emergency department. The patient was given the option to be admitted for intractable abdominal pain. She elected to be discharged home with pain medication. However her pain never resolved, and has been progressively worsening throughout the day today. The worst pain was in her epigastrium, but she also has severe diffuse abdominal pain today. She notices that the pain radiates to her left shoulder. She describes the pain as sharp/ pressure-like, severe, constant, worse with even the slightest movements. She feels nauseous but has not vomited. She has been unable to eat or drink because of the pain. History of section and appendectomy. No other abdominal surgeries. No known cardiac disease.the CT of the abdomen and pelvis obtained in the emergency department shows interval development of free intraperitoneal air and loculated fluid in the lesser sac with slight fluid surrounding the spleen and within the cul-de-sac not present on the prior examination from one day ago. The patient was emergently taken to operating room by Dr. Sargent where she was discovered to have . Perforated posterior wall of the body of the stomach with irritation of the pancreas. Patient update on day of discharge: The pt was feeling well, tolerating a diet and had no acute complaints. DS: Medications - Discharge Medications Prescriptions: fluconazole [Diflucan] 200 mg PO DAILY 7 Days #7 tab hydrocodone-acetaminophen [[place]] 1 tab PO Q6H PRN #30 tab PRN Reason: Pain levofloxacin [Levaquin] 500 mg PO DAILY 7 Days #7 tab pantoprazole [Protonix] 40 mg PO BID 30 Days #60 tab potassium chloride 10 meq PO BID #14 cap prednisone 10 mg PO DAILY #5 tab DS: Summary Hospital Course: Gastric ulcer CT of the abdomen and pelvis obtained in the emergency department showed interval development of free intraperitoneal air and loculated fluid in the lesser sac with slight fluid surrounding the spleen and within the cul-de-sac not present on the prior examination from one day ago. The patient was emergently taken to operating room by Dr. Sargent where she was discovered to have: Perforated posterior wall of the body of the stomach with irritation of the pancreas. S/p: 1. Diagnostic laparoscopy to evaluate the site of perforation, which appeared to be posteriorly. 2. Exploratory laparotomy with lysis of adhesions in the right lower quadrant from previous appendectomy. 3. Entrance into the lesser sac with evacuation of bilious fluid and identification of a perforation of the posterior wall of the stomach overlying the pancreas. 4. Tuan patch of the posterior wall of the stomach with closure of the perforated duodenal ulcer of 5 mm. 5. Placement of drain in the pancreas, on top of the pancreas for drainage of irritation of the pancreas, secondary to the perforated gastric ulcer. She was continued on Protonix along with Zosyn and Diflucan empirically. She received pain control. She worked with physical therapy. Her diet was advanced. She will follow up with surgery as an outpt. She will continue antibiotics, antifungal and PPI upon discharge. Rheumatoid arthritis Has been on Mobic, immune therapy and prednisone. IV Solucortef was changed to prednisone, which the pt will taper. Her rheumatic regimen will be placed on hold in the setting of her perforated gastric ulcer. 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 Hypokalemia S/t diarrhea and decreased PO intake. We replaced KCl as needed. She will be discharged on potassium supplements. She will have a repeat BMP in 3 days. She will follow up with her PCP. - Time Spent with Patient Total time spent providing and/or coordinating discharge services: Greater than 30 minutes - Quality: VTE Deep Vein Thrombosis/Pulmonary Embolism Present on Admission: No Exam Vital signs: Vital Signs 05/20/18 12:00 05/20/18 13:26 05/20/18 16:00 Temperature 97.9 F 98.0 F 98.0 F Pulse Rate 64 85 75 Respiratory Rate 19 18 18 Blood Pressure 191/84 H 147/72 H 139/70 Pulse Oximetry 97 94 L 96 05/20/18 18:02 05/20/18 20:00 05/21/18 00:00 Temperature 97.8 F 97.9 F Pulse Rate 68 81 Respiratory Rate 17 16 Blood Pressure 163/81 H 156/78 H Pulse Oximetry 96 95 94 L 05/21/18 08:00 Temperature 98 F Pulse Rate 76 Respiratory Rate 16 Blood Pressure 139/70 Pulse Oximetry 95 Intake & Output 05/20/18 05/21/18 05/21/18 18:59 06:59 18:59 Intake Total 2378 / 2378 1252 / 1252 100 / 100 Output Total 230 / 230 70 / 70 Balance 2148 / 2148 1182 / 1182 100 / 100 Weight 80.9 kg Intake: IV 1728 / 1728 772 / 772 100 / 100 NS Inj 1,000 ML @ 80 mls/hr IV. 1428 / 1428 572 / 572 CONT .[id number] [facility] Rx#: [id number] Diflucan 200 mg Premix Bag 100 100 / 100 ML @ 100 mls/hr IV.SIG Q24H [facility] Rx#:[id number] Zosyn 4.5 GM Premix 4.5 gm In 200 / 200 200 / 200 100 / 100 100 ml @ 200 mls/hr IV.SIG Q6H [facility] Rx#:[id number] Oral 650 / 650 480 / 480 Output: Wound Drainage 230 / 230 70 / 70 # 1 Abdomen 230 / 230 70 / 70 Other: # Voids 5 3 # Bowel Movements 1 Narrative: GENERAL: Well-developed, well-nourished, in no apparent distress SKIN: Warm and dry. CARDIOVASCULAR: Regular rate and rhythm. RESPIRATORY: No accessory muscle use. Clear to auscultation. Breath sounds equal bilaterally. GASTROINTESTINAL: Abdomen soft, non-tender, nondistended. Mid abdominal incision clean and dry with TAMARA drain in place. MUSCULOSKELETAL: Extremities without clubbing, cyanosis, or edema. No obvious deformities. NEUROLOGICAL: Awake and alert. No obvious cranial nerve deficits. Motor grossly within normal limits. Five out of 5 muscle strength in the arms and legs. Normal speech. PSYCHIATRIC: Appropriate mood and affect; insight and judgment normal. Results Procedures completed during hospitalization: See hospital course Labs on day of discharge: Labs from last 24 hours 05/21/18 05/21/18 03:39 03:39 WBC 11.3 H RBC 3.36 L Hgb 11.7 Hct 33.5 L MCV 99.6 MCH 34.9 H MCHC 35.0 RDW 13.5 Plt Count 223 MPV 6.6 L Sodium 142 Potassium 3.1 L Chloride 107 Carbon Dioxide 27.0 Anion Gap 8 BUN 5 L Creatinine 0.57 Estimated GFR Greater than 89 Random Glucose 137 H Calcium 7.5 L Phosphorus 2.2 L Magnesium 1.8 Preliminary micro results at discharge 05/16/18 12:45 Aerobic Blood Culture - Preliminary Blood - Peripheral No growth in 4 days Anaerobic Blood Culture - Preliminary No growth in 4 days 05/16/18 12:35 Aerobic Blood Culture - Preliminary Blood - Peripheral No growth in 4 days Anaerobic Blood Culture - Preliminary No growth in 4 days - Impressions ITS Impressions Abdomen/Pelvis CT 05/16/18 12:34 CONCLUSION: 1. Interval development of free intraperitoneal air and loculated fluid in the lesser sac with slight fluid surrounding the spleen and within the cul-de-sac not present on the prior examination from one day ago. 2. The exact etiology is not certain, however there is minimal questionable diminished attenuation of the head of the pancreas and possibility of acute pancreatitis should be entertained in addition to possibly perforated gastric ulcer. Discharge Plan - Discharge Disposition Patient Disposition: 01 Discharge Home - Discharge Condition Condition: Stable - Discharge Order Discharge Orders: Discharge Order (Routine); Ordered 05/21/18 Ordered By: Leroy Cruz - Discharge Details Anticipated Discharge Date: 05/21/18 Discharge Comment: Discharge if cleared by surgery, thanks - Physicians Team Primary Care Provider: UNKNOWN, Attending Provider: Leroy Cruz Other Providers: Ilan Sargent MD ; Surgeons,[facility]
[2018-05-21 12:48] VITALS: BP 149/83; PULSE 100; TEMP 97.9; O2SAT 97
--- NOTE | 2018-05-21 13:34 | P.PNGS ---
Subjective Patient reports: no new complaints, feels better Physical Exam Vital signs: Vital Signs 05/20/18 16:00 05/20/18 18:02 05/20/18 20:00 Temperature 98.0 F 97.8 F Pulse Rate 75 68 Respiratory Rate 18 17 Blood Pressure 139/70 163/81 H Pulse Oximetry 96 96 95 05/21/18 00:00 05/21/18 08:00 05/21/18 12:00 Temperature 97.9 F 98 F 97.9 F Pulse Rate 81 76 100 H Respiratory Rate 16 16 16 Blood Pressure 156/78 H 139/70 149/83 H Pulse Oximetry 94 L 95 97 Intake & Output 05/20/18 05/21/18 05/21/18 18:59 06:59 18:59 Intake Total 2378 / 2378 1252 / 1252 100 / 100 Output Total 230 / 230 70 / 70 Balance 2148 / 2148 1182 / 1182 100 / 100 Weight 80.9 kg Intake: IV 1728 / 1728 772 / 772 100 / 100 NS Inj 1,000 ML @ 80 mls/hr IV. 1428 / 1428 572 / 572 CONT .[id number] [facility] Rx#: [id number] Diflucan 200 mg Premix Bag 100 100 / 100 ML @ 100 mls/hr IV.SIG Q24H [facility] Rx#:[id number] Zosyn 4.5 GM Premix 4.5 gm In 200 / 200 200 / 200 100 / 100 100 ml @ 200 mls/hr IV.SIG Q6H [facility] Rx#:[id number] Oral 650 / 650 480 / 480 Output: Wound Drainage 230 / 230 70 / 70 # 1 Abdomen 230 / 230 70 / 70 Other: # Voids 5 3 # Bowel Movements 1 - Constitutional no acute distress - Routine Abdominal Exam Present: soft, normoactive bowel sounds. Absent: tenderness, distended, rebound , guarding - Urinary Catheter Management Indwelling Urethral Catheter Cath placed during this visit: yes, but has since been removed by the nurse Reason for continuing: Decision to DC catheter Insertion date: 05/16/18 Insertion time: 16:54 Removal date: 05/17/18 Removal time: 16:30 Results - Labs 05/21/18 03:39 05/21/18 03:39 Laboratory Results - last 24 hr 05/21/18 05/21/18 03:39 03:39 WBC 11.3 H RBC 3.36 L Hgb 11.7 Hct 33.5 L MCV 99.6 MCH 34.9 H MCHC 35.0 RDW 13.5 Plt Count 223 MPV 6.6 L Sodium 142 Potassium 3.1 L Chloride 107 Carbon Dioxide 27.0 Anion Gap 8 BUN 5 L Creatinine 0.57 Estimated GFR Greater than 89 Random Glucose 137 H Calcium 7.5 L Phosphorus 2.2 L Magnesium 1.8 - Imaging Imaging: ITS Impressions Abdomen/Pelvis CT 05/16/18 12:34 CONCLUSION: 1. Interval development of free intraperitoneal air and loculated fluid in the lesser sac with slight fluid surrounding the spleen and within the cul-de-sac not present on the prior examination from one day ago. 2. The exact etiology is not certain, however there is minimal questionable diminished attenuation of the head of the pancreas and possibility of acute pancreatitis should be entertained in addition to possibly perforated gastric ulcer. Assessment and Plan - Assessment (1) Perforated gastric ulcer Code(s): K25.5 - Chronic or unspecified gastric ulcer with perforation Status : Acute Plan: 63-year-old female with rheumatoid arthritis Recently started on steroids for control of her rheumatoid arthritis developed a perforated gastric ulcer She is postop day 5 from her surgical intervention tolerating diet TAMARA benign output pain ok +BM ok to DC from surgery standpoint (2) Rheumatoid arteritis Code(s): I00 - Rheumatic fever without heart involvement Status: Acute (3) group home systemic steroid user Code(s): Z79.52 - group home (current) use of systemic steroids Status: Acute (4) History of pulmonary embolus (PE) Code(s): Z86.711 - Personal history of pulmonary embolism Status: Acute (1) Perforated gastric ulcer Qualifiers: Gastric ulcer chronicity: acute Qualified Code(s): K25.1 - Acute gastric ulcer with perforation
== END 2018-05-21 14:51 | disposition home or self-care (01) ==
LOC: PHED 12:05 → PHEDH 14:00 → PHEDA 14:35 → PHEDH 14:37 → PHED 15:27 → HSDI 17:23 → N03 19:49 → N07 05-18 23:38
PROVIDERS: ADMIT Hospitalist; ATTEND Hospitalist